=== PATIENT | male | born 1950 | race Caucasian/White ===

== ENCOUNTER 2020-09-14 14:04 | Inpatient (IN) | payer MEDICARE ==
[~2020-09-14] VITALS: Ht 170.2 cm; Wt 66.3 kg
[2020-09-14 18:30] VITALS: BP 152/77
[2020-09-14] MEDS ORDERED: PANTOPRAZOLE SODIUM 40 MG in D5W 50 ML IV SCH (19:00)
[2020-09-14 20:00] VITALS: BP_SYST 122; BP_SYST 142; BP_DIAS 78; BP_DIAS 83
--- NOTE | 2020-09-14 20:07 | REP ---
INDICATION: SOB. COMPARISON: None. TECHNIQUE: SINGLE PORTABLE AP VIEW OF THE CHEST WAS PERFORMED. FINDINGS: THERE IS NO ACUTE INFILTRATE OR PULMONARY EDEMA. LUNGS ARE CLEAR. HEART IS NOT SIGNIFICANTLY ENLARGED. MEDIASTINAL SILHOUETTE IS UNREMARKABLE. THE VISUALIZED OSSEOUS STRUCTURES ARE INTACT. IMPRESSION: NO ACUTE PULMONARY DISEASE. <Electronically signed by Marko Short > 09/14/202003
[2020-09-14 20:19] LABS: BASO % 0.6 % (0.0-1.0); EOS # 0.1 10^3/uL (0.0-0.5); EOS % 1.4 % (0.0-3.0); HEMATOCRIT 23.5 % (42.0-52.0); LYMPH # 1.1 10^3/uL (1.5-5.0); LYMPH % 21.4 % (24.0-44.0); MEAN CORPUSCULAR HEMOGLOBIN 23.3 pg (27.0-33.0); MEAN CORPUSCULAR HGB CONC 29.8 g/dl (32.0-36.5); MEAN CORPUSCULAR VOLUME 78.1 fl (80.0-96.0); MONO # 0.4 10^3/uL (0.0-0.8); MONO % 8.2 % (0.0-5.0); NEUTROPHILS # 3.3 10^3/uL (1.5-8.5); PLATELET COUNT, AUTOMATED 383 10^3/uL (150-450); RED BLOOD COUNT 3.01 10^6/uL (4.30-6.10); WHITE BLOOD COUNT 4.9 10^3/uL (4.0-10.0)
[2020-09-14 21:08] LABS: ALBUMIN 3.2 GM/DL (3.2-5.2); ALT/SGPT 19 U/L (12-78); BILIRUBIN,TOTAL 1.5 MG/DL (0.2-1.0); BLOOD UREA NITROGEN 13 MG/DL (7-18); CALCIUM LEVEL 8.6 MG/DL (8.8-10.2); CARBON DIOXIDE LEVEL 26 MEQ/L (21-32); CHLORIDE LEVEL 108 MEQ/L (98-107); CK-MB VALUE MASS 1.9 NG/ML (<3.6); CPK CREATINE PHOSPHOKINASE 114 U/L (39-308); CREATININE FOR GFR 0.71 MG/DL (0.70-1.30); FERRITIN < 3 NG/ML (26-388); GLOMERULAR FILTRATION RATE > 60.0 (>42); GLUCOSE, FASTING 97 MG/DL (70-100); IRON (FE) 62 UG/DL (65-175); MB/CK RELATIVE INDEX 1.67 (< OR =4); NT-PRO BNP 136 PG/ML (<125); PERCENT SATURATION 17.2 % (19.7-50.0); SODIUM LEVEL 139 MEQ/L (136-145); TOTAL IRON BINDING CAPACITY 361 UG/DL (250-450); TOTAL PROTEIN 6.1 GM/DL (6.4-8.2); TROPONIN I < 0.02 NG/ML (< 0.10)
--- NOTE | 2020-09-14 21:22 | HPEPDOC ---
[facility] Medical History & Physical Date of Admission Sep 14, 2020 Date of Service: Sep 14, 2020 Attending Physician: BARNEY BECKHAM MD History and Physical CHIEF COMPLAINT: Transfer from [facility], GI bleed HISTORY OF PRESENT ILLNESS: Wade Campoverde is a 70-year-old male with history of GERD, BPH, history of external hemorrhoids, frequent UTIs who presents as transfer from [facility] for acute blood loss anemia. 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 He has had to take frequent breaks and has been feeling lethargic and weak. He has a long history of external hemorrhoids that intermittently bleed. He has noticed his hemorrhoids bleeding in the last 3 weeks. He reached out to his primary care physician who sent him to the [facility]. Workup at [facility] was significant for hemoglobin at 6.2. The patient also reports some epigastric abdominal discomfort about one week ago. He attributed this to drinking acidic coffee, and the abdominal pain subsided when he stopped drinking coffee. He denies any black tarry stools or maroon-colored stools. He does report when his hemorrhoids are bleeding it appears as right red blood dripping in the toilet and he feels there has been a significant amount of blood in the past couple of weeks. He denies any chest pain, coughing, shortness of breath, lightheadedness or dizziness. He has never had an EGD or colonoscopy. He did recently have a UTI treated with ciprofloxacin. 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 REVIEW OF SYSTEMS: Constitutional: Reports fatigue, reports chills, denies weight loss, denies night sweats ENT/Mouth: No Hearing Changes, No Ear Pain, No Nasal Congestion, No Sinus Pain, No Hoarseness, No sore throat, No Rhinorrhea, No Swallowing Difficulty Eyes: No Eye Pain, No Swelling, No Redness, No Foreign Body, No Discharge, No Vision Changes Cardiovascular: No Chest Pain, No SOB, No PND, reports some Dyspnea on Exert ion, No Orthopnea, No Claudication, No Edema, No Palpitations Respiratory: No Cough, No Wheezing, No Dyspnea Gastrointestinal: Reports some intermittent epigastric abdominal pain, reports some bleeding hemorrhoids, denies black tarry stools or maroon-colored stools. Genitourinary: Recent dysuria attributed to UTI Musculoskeletal: No Arthralgias, No Myalgias, No Joint Swelling, No Joint Stiffness, No Back Pain, No Neck Pain Skin: No Skin Lesions, No Pruritis, No Hair Changes, No Breast/Skin Changes, No Nipple Discharge Neuro: No Weakness, No Numbness, No Paresthesias, No Loss of Consciousness, No Syncope, No Dizziness, No Headache, No Coordination Changes, No Recent Falls Psych: No Anxiety/Panic, No Depression, No Insomnia, No Personality Changes, No Delusions Heme/Lymph: No Bruising, No Bleeding, No Transfusions History, No Lymphadenopathy Endocrine: No Polyuria, No Polydipsia, No Temperature Intolerance HOME MEDICATIONS: Please see below. PHYSICAL EXAMINATION: VITAL SIGNS: see below GENERAL: Appears younger than stated age, alert and oriented, in no apparent distress, pleasant and conversant in full sentences. HEENT: PERRL, EOMI, Oral mucous membranes are moist without lesions. NECK: The patient has no noted JVD. No adenopathy is appreciated. No thyromegaly CHEST/LUNGS: Lungs are clear bilaterally without rhonchi, rales, or wheezes. There is no subcutaneous air appreciated. There is no tenderness to the chest wall. HEART: Regular rate and rhythm. No murmurs, rubs, or gallops are appreciated. Distal pulses are 2+. No carotid bruits appreciated. ABDOMEN: Soft, nontender, and nondistended. Bowel sounds are positive. No organomegaly is appreciated. No masses are appreciated. There are no peritoneal signs. There is no [place] sign. EXTREMITIES: No peripheral edema. There is no focal long bone tenderness or deformity. SKIN: The patients skin is warm and dry, without rashes or lesions. PSYCHIATRIC: AAO x 3, normal mood/affect NEUROLOGIC: No obvious focal deficits LABORATORY DATA: See below. IMAGING: CXR: FINDINGS: THERE IS NO ACUTE INFILTRATE OR PULMONARY EDEMA. LUNGS ARE CLEAR. HEART IS NOT SIGNIFICANTLY ENLARGED. MEDIASTINAL SILHOUETTE IS UNREMARKABLE. THE VISUALIZED OSSEOUS STRUCTURES ARE INTACT. IMPRESSION: NO ACUTE PULMONARY DISEASE. MICROBIOLOGY: Please see below. ASSESSMENT: This is a 70-year-old male with history of GERD, external hemorrhoids who presents as transfer from [facility] for acute blood loss anemia concerning for GI bleed versus bleeding hemorrhoids PLAN: 1. Acute blood loss anemia, symptomatic: concerning for GIB vs bleeding hemorrhoids -Per transfer notes, initial hemoglobin at [facility] was 6.8 and repeat was found to be 5.8. Unsure of how much blood transfused at [facility] -Hgb/Hct on arrival to [facility] found to be 7.0/23.5 -MCV 78.1. Pending iron studies -Reticulocyte noted to be low at 20.8. Abs reticulocyte count calculated at 0.8, indicating hypoproliferation -2 units packed red blood cells ordered for transfusion. Patient has been consented -Will trend H/H Q6H -Will order fecal occult -Protonix 40mg IV BID -GI consult in AM for possible scope 2. Frequent UTIs, recent dysuria: -Will order UA 3. GERD: -On Protonix 4. BPH: -Continue home Flomax DVT ppx: TEDs/SCDs DISPO: Transfuse pRBC, trend H/h Vital Signs Vital Signs Date Time Temp Pulse Resp B/P (MAP) Pulse Ox O2 Delivery O2 Flow Rate FiO2 09/14/20 18:30 97.2 61 18 152/77 (102) 100 Room Air Laboratory Data Labs 24H Laboratory Tests 2 09/14/20 19:33: Home Medications Scheduled Multivitamins (Thera M Plus Tablet) 1 Each Tablet, 1 TAB PO DAILY Tamsulosin HCl (Flomax) 0.4 Mg Capsule, 0.4 MG PO QPM AFTER DINNER Scheduled PRN Triamcinolone Acet (Triamcinolone Acetonide 0.1% Oint) 15 Gm Oint...g., 1 DOSE TOP BID PRN for ECZEMA APPLIES TO BACK NEEDED Allergies Coded Allergies: No Known Allergies (Verified Allergy, Unknown, 09/14/20) A-FIB/CHADSVASC A-FIB History Current/History of A-Fib/PAF?: No Current PO Anticoag Therapy: No GME ATTESTATION GME ATTESTATION My faculty preceptor for this patient encounter was physically present during the encounter and was fully available. All aspects of the patient interview, examination, medical decision making process, and medical care plan development were reviewed and approved by the faculty preceptor. The faculty preceptor is aware and concurs with the plan as stated in the body of this note and will attest to such by his/her cosignature. ATTENDING NOTE TIME OF SERVICE 940PM Mr. Santos a 70 yr old w a hx of hemorrhoids and BPH who presented w c/o fat igue and was found to have acute anemia. - start venofer & f/u w GI rest per 's H&P ALISIA CARPENTER MD Sep 14, 2020 19:44 BARNEY BECKHAM MD Sep 14, 2020 23:06
[2020-09-14] MEDS ORDERED: TRIA1OI TOP (21:28)
[2020-09-14] MEDS ORDERED: FLOM0.4C39 PO (21:28)
[2020-09-14] MEDS ORDERED: VITMTA PO (21:28)
[2020-09-14 21:43] LABS: BILIRUBIN,DIRECT 0.3 MG/DL (0.0-0.2); LIPASE 101 U/L (73-393)
[2020-09-14 21:54] VITALS: BP 124/74
[2020-09-14 22:09] VITALS: BP 130/80
[2020-09-14 22:54] VITALS: BP 122/76
[2020-09-14] MEDS ORDERED: IRON SUCROSE 100MG 5ML VIAL (J1756 PER 1MG) IV SCH (23:00)
[2020-09-14] MEDS: PANTOPRAZOLE 40MG VIAL (C9113 PER 1) IV SCH (23:08)
[2020-09-15] VITALS (9 sets, daily range): BP systolic 105–137; BP diastolic 63–78
[2020-09-15] MEDS: TAMSULOSIN 0.4 MG CAP PO SCH ×2 (00:31→21:56)
[2020-09-15 04:04] LABS: BASO % 0.4 % (0.0-1.0); EOS # 0.2 10^3/uL (0.0-0.5); EOS % 3.7 % (0.0-3.0); HEMATOCRIT 26.8 % (42.0-52.0); HEMOGLOBIN 8.3 g/dl (13.5-17.5); LYMPH # 1.4 10^3/uL (1.5-5.0); LYMPH % 29.3 % (24.0-44.0); MEAN CORPUSCULAR HEMOGLOBIN 24.3 pg (27.0-33.0); MEAN CORPUSCULAR VOLUME 78.6 fl (80.0-96.0); MONO # 0.5 10^3/uL (0.0-0.8); MONO % 10.7 % (0.0-5.0); NEUTROPHILS # 2.7 10^3/uL (1.5-8.5); NEUTROPHILS % 55.7 % (36.0-66.0); PLATELET COUNT, AUTOMATED 334 10^3/uL (150-450); RED BLOOD COUNT 3.41 10^6/uL (4.30-6.10); WHITE BLOOD COUNT 4.8 10^3/uL (4.0-10.0)
[2020-09-15 04:25] LABS: BLOOD UREA NITROGEN 12 MG/DL (7-18); CALCIUM LEVEL 8.3 MG/DL (8.8-10.2); CARBON DIOXIDE LEVEL 28 MEQ/L (21-32); CHLORIDE LEVEL 106 MEQ/L (98-107); CREATININE FOR GFR 0.81 MG/DL (0.70-1.30); GLOMERULAR FILTRATION RATE > 60.0 (>42); GLUCOSE, FASTING 89 MG/DL (70-100); POTASSIUM SERUM 3.9 MEQ/L (3.5-5.1); SODIUM LEVEL 141 MEQ/L (136-145)
--- NOTE | 2020-09-15 08:38 | ECGEPIP ---
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
[2020-09-15] MEDS: PANTOPRAZOLE 40MG VIAL (C9113 PER 1) IV SCH ×2 (09:16→21:56)
[2020-09-15] MEDS: IRON SUCROSE 100 MG in NS 100 ML IV SCH (11:35)
[2020-09-15 12:54] LABS: HEMATOCRIT 29.4 % (42.0-52.0); HEMOGLOBIN 9.1 g/dl (13.5-17.5)
--- NOTE | 2020-09-15 14:19 | IPNPDOC ---
Text Note Date of Service The patient was seen on 09/15/20. NOTE Subjective: -No complaints this morning. -Had non bloody brown BM Objective: GENERAL: Alert and oriented, in no apparent distress, pleasant and conversant in full sentences. HEENT: PERRL, EOMI, Oral mucous membranes are moist without lesions. NECK: The patient has no noted JVD. No adenopathy is appreciated. No thyromegaly CHEST/LUNGS: Lungs are clear bilaterally without rhonchi, rales, or wheezes. There is no subcutaneous air appreciated. There is no tenderness to the chest wall. HEART: Regular rate and rhythm. No murmurs, rubs, or gallops are appreciated. Distal pulses are 2+. No carotid bruits appreciated. ABDOMEN: Soft, nontender, and nondistended. Bowel sounds are positive. No organomegaly is appreciated. No masses are appreciated. EXTREMITIES: No peripheral edema. There is no focal long bone tenderness or deformity. SKIN: The patients skin is warm and dry, without rashes or lesions. PSYCHIATRIC: AAO x 3, normal mood/affect NEUROLOGIC: No obvious focal deficits LABORATORY DATA: Hgb 9.1 Hct 29.4 WBC 4.8 Cr 0.81 Fe 62 ferritin <3 IMAGING: CXR: FINDINGS: THERE IS NO ACUTE INFILTRATE OR PULMONARY EDEMA. LUNGS ARE CLEAR. HEART IS NOT SIGNIFICANTLY ENLARGED. MEDIASTINAL SILHOUETTE IS UNREMARKABLE. THE VISUALIZED OSSEOUS STRUCTURES ARE INTACT. IMPRESSION: NO ACUTE PULMONARY DISEASE. MICROBIOLOGY: Please see below. ASSESSMENT: This is a 70-year-old male with history of GERD, external hemorrhoids who presents as transfer from [facility] for acute blood loss anemia concerning for GI bleed versus bleeding hemorrhoids PLAN: 1. Acute blood loss anemia, symptomatic: concerning for GIB -Per transfer notes, initial hemoglobin at [facility] was 6.8 and repeat was found to be 5.8. Unsure of how much blood transfused at [facility] -Hgb/Hct on arrival to [facility] found to be 7.0/23.5 -MCV 78.1. -Reticulocyte noted to be low at 20.8. Abs reticulocyte count calculated at 0.8, indicating hypoproliferation, however i/s/o of no iron stores with a ferritin <3 -s/p 2 units packed red blood cells with good sustained response -Daily H/H -Protonix 40mg IV BID -GI consult for possible scope, has never had a colonoscopy -getting IV iron, and will discharge him on PO iron -f/u B12 and folate 2. Frequent UTIs, recent dysuria: -negative UA, f/u UCx 3. GERD: -On Protonix 4. BPH: -Continue home Flomax DVT ppx: TEDs/SCDs DISPO:pending GI eval VS,Fishbone, I+O VS, Fishbone, I+O Laboratory Tests 09/14/20 20:09 09/15/20 03:55 09/15/20 12:43 Vital Signs Date Time Temp Pulse Resp B/P (MAP) Pulse Ox O2 Delivery O2 Flow Rate FiO2 09/15/20 12:36 98.2 63 18 105/63 (77) 97 Room Air I&O- Last 24 Hours up to 6 AM 09/15/20 06:00 Intake Total 800 ml Output Total 125 ml Balance 675 ml MARCOS DONG MD Sep 15, 2020 14:19
[2020-09-15] MEDS ORDERED: GOLYTELY SOLN 4000 ML BTL PO ONE (23:30)
[2020-09-16 05:56] LABS: EOS # 0.2 10^3/uL (0.0-0.5); HEMATOCRIT 27.9 % (42.0-52.0); HEMOGLOBIN 8.6 g/dl (13.5-17.5); LYMPH # 1.4 10^3/uL (1.5-5.0); LYMPH % 32.8 % (24.0-44.0); MEAN CORPUSCULAR HEMOGLOBIN 24.2 pg (27.0-33.0); MEAN CORPUSCULAR HGB CONC 30.8 g/dl (32.0-36.5); MEAN CORPUSCULAR VOLUME 78.4 fl (80.0-96.0); MONO # 0.4 10^3/uL (0.0-0.8); MONO % 9.3 % (0.0-5.0); NEUTROPHILS # 2.2 10^3/uL (1.5-8.5); NEUTROPHILS % 52.4 % (36.0-66.0); PLATELET COUNT, AUTOMATED 321 10^3/uL (150-450); RED BLOOD COUNT 3.56 10^6/uL (4.30-6.10); WHITE BLOOD COUNT 4.2 10^3/uL (4.0-10.0)
[2020-09-16 06:00] VITALS: BP 138/76
[2020-09-16 06:16] LABS: BLOOD UREA NITROGEN 9 MG/DL (7-18); CALCIUM LEVEL 8.5 MG/DL (8.8-10.2); CARBON DIOXIDE LEVEL 27 MEQ/L (21-32); CHLORIDE LEVEL 105 MEQ/L (98-107); CREATININE FOR GFR 0.88 MG/DL (0.70-1.30); GLOMERULAR FILTRATION RATE > 60.0 (>42); GLUCOSE, FASTING 86 MG/DL (70-100); POTASSIUM SERUM 3.9 MEQ/L (3.5-5.1); SODIUM LEVEL 140 MEQ/L (136-145)
[2020-09-16] MEDS: PANTOPRAZOLE 40MG VIAL (C9113 PER 1) IV SCH ×2 (08:35→22:18)
[2020-09-16] MEDS: IRON SUCROSE 100 MG in NS 100 ML IV SCH (09:53)
[2020-09-16 13:19] VITALS: BP 122/75
--- NOTE | 2020-09-16 13:50 | CR.PDOC ---
General Date of Consultation: Sep 16, 2020 Referring Provider: MARCOS VIRAMONTES MD Attending Physician: PATY BATES MD Consultation Referring physician / PCP : Dr. Viramontes Reason for consult: symptomatic Anemia and intermittent rectal bleeding. HPI: 70-year-old male with history of chronic acid reflux, BPH, history of external hemorrhoids, frequent UTIs who was transferred from [facility] for acute blood loss anemia. Patient was noted to have severe anemia with hemoglobin of 6.2 and Gi was consulted for the same. 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 He reports long history of external hemorrhoids that intermittently bleed. Patient also reported some epigastric abdominal pain at the time of admission but currently denies any abdominal pain, nausea, vomiting, diarrhea, loss of appetite, early satiety or unintentional weight loss, hematemesis, melena. Patient reports regular bowel movements. Review of Systems: GI: as stated above CVS: No chest pain, No palpitations, No leg swelling RS: No Shortness of breath, No Wheezing DRAWER UPFITTER: No loss of consciousness, No focal motor weakness., Hematology: No easy bruising, No gum bleeding, Musculoskeletal: No joint pain, ambulating well. : No blood inurine, No burning sensation of the urine ENT: No ear discharge/ pain, No dysphagia. Eyes: No photophobia. Skin: No rash Home medications: reviewed. No Plavix and No anticoagulants Medical h/o: As above. Surgical h/o: None on abdomen. Social h/o: Denies Alcohol, smoking, IVDA/ drugs. Family h/o of GI cancers - None Prior Endoscopies: None in [facility]. No prior Screening Colonoscopy as per patient. Prior GI evaluation: None in [facility] Exam: Vitals: reviewed General: Alert and oriented x 3, not in acute distress HEENT: No pallor, no icterus. Normal oropharynx, NO cervical lymphadenopathy. Chest: symmetric with bilateral air entry, CVS: S1, S2 heard, Abdomen: non-distended, soft, non-tender, no rigidity or guarding, no palpable masses, normal bowel sounds heard. Rectal exam: Patient refused / Deferred at this time in view of scheduled colonoscopy. Extremities: pulses palpable, no pedal edema, DRAWER UPFITTER: no focal motor or sensory deficits. Moves all extremities Skin: no rash. Labs: reviewed. Imaging: none / reviewed. Impression: -- Symptomatic anemia likely from GI blood loss with intermittent rectal bleeding Needs further evaluation DDxAVM bleeding vs colon polyps vs hemorrhoids/ diverticulosis vs upper GI bleeding. Recommendations: -- Patient educated about the prior test results and all questions answered. -- Monitor hemoglobin/ hematocrit Transfuse as needed to keep hemoglobin around/ above 8. -- bowel prep for colonoscopy as ordered. -- NPO for procedure 2-3 hours prior to procedure. -- PPI for now -- Will schedule for EGD and Colonoscopy after bowel prep. Patient educated about the procedures, indications, risks (including but not limited to bleeding, infection, perforation, anesthesia risks, including ), benefits and all alternatives including conservative measures without intervention. Patient verbalized understanding and consented for the procedures. -- Please follow operative note for post procedure recommendations. -- Plan of care educated to patient and patient verbalized understanding and agreed. All questions answered. -- Recommendations communicated to primary team. Patient to follow with PCP upon discharge for routine medical care. Vital Signs/I&O Vital Signs Date Time Temp Pulse Resp B/P (MAP) Pulse Ox O2 Delivery O2 Flow Rate FiO2 09/16/20 13:19 97.7 57 14 122/75 (91) 98 Room Air I&O- Last 24 Hours up to 6 AM 09/16/20 06:00 Intake Total 850 ml Output Total 0 ml Balance 850 ml Laboratory Data Labs 24H Laboratory Tests 2 09/16/20 05:17: Immature Granulocyte % (Auto) 0.5, Neutrophils (%) (Auto) 52.4, Lymphocytes (%) (Auto) 32.8, Monocytes (%) (Auto) 9.3H, Eosinophils (%) (Auto) 4.0H, Basophils (%) (Auto) 1.0, Neutrophils # (Auto) 2.2, Lymphocytes # (Auto) 1.4L, Monocytes # (Auto) 0.4, Eosinophils # (Auto) 0.2, Basophils # (Auto) 0.0, Nucleated Red Blood Cells % (auto) 0.0, Anion Gap 8, Glomerular Filtration Rate > 60.0, Calcium Level 8.5L CBC/BMP Laboratory Tests 09/16/20 05:17 Microbiology Microbiology 09/14/20 Urine Culture - Final, Complete Allergies Coded Allergies: No Known Allergies (Verified Allergy, Unknown, 09/14/20) Home Medications Scheduled Multivitamins (Thera M Plus Tablet) 1 Each Tablet, 1 TAB PO DAILY, (Reported) Tamsulosin HCl (Flomax) 0.4 Mg Capsule, 0.4 MG PO QPM, (Reported) AFTER DINNER Scheduled PRN Triamcinolone Acet (Triamcinolone Acetonide 0.1% Oint) 15 Gm Oint...g., 1 DOSE TOP BID PRN for ECZEMA, (Reported) APPLIES TO BACK NEEDED PATY BATES MD Sep 16, 2020 13:50
--- NOTE | 2020-09-16 14:15 | IPNPDOC ---
Text Note Date of Service The patient was seen on 09/16/20. NOTE Subjective: -No complaints this morning. - Had go-lytely prep overnight for EGD/colo today, no complications, doing well Objective: GENERAL: Alert and oriented, in no apparent distress, pleasant and conversant in full sentences. HEENT: PERRL, EOMI, Oral mucous membranes are moist without lesions. NECK: The patient has no noted JVD. No adenopathy is appreciated. No thyromegaly CHEST/LUNGS: Lungs are clear bilaterally without rhonchi, rales, or wheezes. There is no subcutaneous air appreciated. There is no tenderness to the chest wall. HEART: Regular rate and rhythm. No murmurs, rubs, or gallops are appreciated. Distal pulses are 2+. No carotid bruits appreciated. ABDOMEN: Soft, nontender, and nondistended. Bowel sounds are positive. No organomegaly is appreciated. No masses are appreciated. EXTREMITIES: No peripheral edema. There is no focal long bone tenderness or deformity. SKIN: The patients skin is warm and dry, without rashes or lesions. PSYCHIATRIC: AAO x 3, normal mood/affect NEUROLOGIC: No obvious focal deficits LABORATORY DATA: stable IMAGING: CXR: FINDINGS: THERE IS NO ACUTE INFILTRATE OR PULMONARY EDEMA. LUNGS ARE CLEAR. HEART IS NOT SIGNIFICANTLY ENLARGED. MEDIASTINAL SILHOUETTE IS UNREMARKABLE. THE VISUALIZED OSSEOUS STRUCTURES ARE INTACT. IMPRESSION: NO ACUTE PULMONARY DISEASE. MICROBIOLOGY: Please see below. ASSESSMENT: This is a 70-year-old M with history of GERD, external hemorrhoids who presents as transfer from [facility] for acute blood loss anemia for GI evaluation. PLAN: 1. Acute blood loss anemia, symptomatic: 2/2 GIB -Per transfer notes, initial hemoglobin at [facility] was 6.8 and repeat was found to be 5.8. Unsure of how much blood transfused at [facility] -Hgb/Hct on arrival to [facility] found to be 7.0/23.5 -MCV 78.1. -Reticulocyte noted to be low at 20.8. Abs reticulocyte count calculated at 0.8, indicating hypoproliferation, however i/s/o of no iron stores with a ferritin <3 -s/p 2 units packed red blood cells with good sustained response -Daily H/H -Protonix 40mg IV BID -GI consulted has EGD/colo today -getting IV iron, and will discharge him on PO iron -f/u B12 and folate 2. Frequent UTIs, recent dysuria: -negative UA, f/u UCx 3. GERD: -On Protonix 4. BPH: -Continue home Flomax DVT ppx: TEDs/SCDs DISPO: has EGD/[facility] today VS,Fishbone, I+O VS, Fishbone, I+O Laboratory Tests 09/16/20 05:17 Vital Signs Date Time Temp Pulse Resp B/P (MAP) Pulse Ox O2 Delivery O2 Flow Rate FiO2 09/16/20 13:19 97.7 57 14 122/75 (91) 98 Room Air I&O- Last 24 Hours up to 6 AM 09/16/20 05:59 Intake Total 550 ml Output Total 0 ml Balance 550 ml MARCOS DONG MD Sep 16, 2020 14:15
[2020-09-16] MEDS ORDERED: propofoL 200 MG/20 ML VIAL As Ordered ONE (14:44)
[2020-09-16] MEDS ORDERED: LIDOCAINE 2% 100MG/5ML SDV (FOR ANES.) As Ordered ONE (14:44)
--- NOTE | 2020-09-16 15:40 | ROOR ---
Patient Name: Wade Campoverde Procedure Date: 09/16/2020 2:39 PM Date of : 1950 Age: 70 Room: [facility] Gender: Male Note Status: Finalized Procedure: Upper GI endoscopy Indications: Acute post hemorrhagic anemia, Iron deficiency anemia Providers: Florin Mejía MD Referring MD: 2. Inpatient 2. Inpatient, Zoë Fowler Md Requesting Provider: Medicines: Monitored Anesthesia Care Complications: No immediate complications. Procedure: Pre-Anesthesia Assessment: - Prior to the procedure, a History and Physical was performed, and patient medications and allergies were reviewed. The patient is competent. The risks and benefits of the procedure and the sedation options and risks were discussed with the patient. All questions were answered and informed consent was obtained. Patient identification and proposed procedure were verified by the physician, the nurse and the anesthesiologist in the procedure room. Mental Status Examination: alert and oriented. Airway Examination: normal oropharyngeal airway and neck mobility. Respiratory Examination: clear to auscultation. CV Examination: normal. Prophylactic Antibiotics: The patient does not require prophylactic antibiotics. Prior Anticoagulants: The patient has taken no previous anticoagulant or antiplatelet agents. ASA Grade Assessment: II - A patient with mild systemic disease. After reviewing the risks and benefits, the patient was deemed in satisfactory condition to undergo the procedure. The anesthesia plan was to use monitored anesthesia care (MAC). Immediately prior to administration of medications, the patient was re-assessed for adequacy to receive sedatives. The heart rate, respiratory rate, oxygen saturations, blood pressure, adequacy of pulmonary ventilation, and response to care were monitored throughout the procedure. The physical status of the patient was re-assessed after the procedure. The Endoscope was introduced through the mouth, and advanced to the second part of duodenum. The upper GI endoscopy was accomplished without difficulty. The patient tolerated the procedure well. Findings: The examined esophagus was normal. A large hiatal hernia was present. No gross lesions were noted in the entire examined stomach. There was a medium-sized lipoma, 15 mm in diameter, in the second portion of the duodenum. The exam was otherwise without abnormality. Impression: - Normal esophagus. - Large hiatal hernia. - No gross lesions in the stomach. - Duodenal lipoma. - The examination was otherwise normal. - No specimens collected. Recommendation: - Patient has a contact number available for emergencies. The signs and symptoms of potential delayed complications were discussed with the patient. Return to normal activities tomorrow. Written discharge instructions were provided to the patient. - Advance diet as tolerated. - High fiber diet. - Continue present medications. - Follow the recommendations as per the other procedure note. - Return to primary care physician. Procedure Code(s): --- Professional --- 49744, Esophagogastroduodenoscopy, flexible, transoral; diagnostic, including collection of specimen(s) by brushing or washing, when performed (separate procedure) Diagnosis Code(s): --- Professional --- K44.9, Diaphragmatic hernia without obstruction or gangrene D17.5, Benign lipomatous neoplasm of intra-abdominal organs D62, Acute posthemorrhagic anemia D50.9, Iron deficiency anemia, unspecified CPT copyright 2019 [employer]. All rights reserved. The codes documented in this report are preliminary and upon agile developer review may be revised to meet current compliance requirements. Florin Mejía MD Florin Mejía MD 09/16/2020 3:39:55 PM Electronically signed by Florin Mejía MD Number of Addenda: 0 Note Initiated On: 09/16/2020 2:39 PM Estimated Blood Loss: Estimated blood loss was minimal.
--- NOTE | 2020-09-16 15:58 | ROOR ---
Patient Name: Wade Campoverde Procedure Date: 09/16/2020 2:41 PM Date of : 1950 Age: 70 Room: [facility] Gender: Male Note Status: Finalized Procedure: Colonoscopy Indications: Hematochezia, Acute post hemorrhagic anemia Providers: Florin Mejía MD Referring MD: 2. Inpatient 2. Inpatient, Zoë Fowler Md Requesting Provider: Medicines: Monitored Anesthesia Care Complications: No immediate complications. Procedure: Pre-Anesthesia Assessment: - Prior to the procedure, a History and Physical was performed, and patient medications and allergies were reviewed. The patient is competent. The risks and benefits of the procedure and the sedation options and risks were discussed with the patient. All questions were answered and informed consent was obtained. Patient identification and proposed procedure were verified by the physician, the nurse and the anesthesiologist in the procedure room. Mental Status Examination: alert and oriented. Airway Examination: normal oropharyngeal airway and neck mobility. Respiratory Examination: clear to auscultation. CV Examination: normal. Prophylactic Antibiotics: The patient does not require prophylactic antibiotics. Prior Anticoagulants: The patient has taken no previous anticoagulant or antiplatelet agents. ASA Grade Assessment: III - A patient with severe systemic disease. After reviewing the risks and benefits, the patient was deemed in satisfactory condition to undergo the procedure. The anesthesia plan was to use monitored anesthesia care (MAC). Immediately prior to administration of medications, the patient was re-assessed for adequacy to receive sedatives. The heart rate, respiratory rate, oxygen saturations, blood pressure, adequacy of pulmonary ventilation, and response to care were monitored throughout the procedure. The physical status of the patient was re-assessed after the procedure. The Colonoscope was introduced through the anus and advanced to the cecum, identified by appendiceal orifice and ileocecal valve. The colonoscopy was performed without difficulty. The patient tolerated the procedure well. The quality of the bowel preparation was fair. The ileocecal valve, appendiceal orifice, and rectum were photographed. Scope insertion time was 5 minutes. Scope withdrawal time was 15 minutes. The total duration of the procedure was 20 minutes. Findings: The perianal exam findings include thrombosed external hemorrhoids, thrombosed internal hemorrhoids and internal hemorrhoids that do not return to the anal canal, thus continuously prolapsed (Grade IV). Two sessile polyps were found in the ascending colon and cecum. The polyps were 3 to 4 mm in size. These polyps were removed with a jumbo cold forceps. Resection and retrieval were complete. Verification of patient identification for the specimen was done by the physician and nurse using the patient's name, date and medical record number. Estimated blood loss was minimal. A 15 mm polyp was found in the distal descending colon. The polyp was sessile and suspicious for cancer. This was biopsied with a cold forceps for histology. To stop active bleeding, two hemostatic clips were successfully placed. There was no bleeding at the end of the procedure. Area of descending colon proximal to this polyp was tattooed with an injection of Spot (carbon black). A frond-like/villous, infiltrative and ulcerated non-obstructing large mass was found in the recto-sigmoid colon and at 15 cm proximal to the anus. The mass was partially circumferential (involving one-half of the lumen circumference). The mass measured five cm in length. In addition, its diameter measured thirty mm. This was biopsied with a cold forceps for histology. External and internal hemorrhoids were found during retroflexion and during perianal exam. The hemorrhoids were Grade IV (internal hemorrhoids that prolapse and cannot be reduced manually). Impression: - Preparation of the colon was fair. - Thrombosed external hemorrhoids, thrombosed internal hemorrhoids and internal hemorrhoids that do not return to the anal canal, thus continuously prolapsed (Grade IV) found on perianal exam. - Two 3 to 4 mm polyps in the ascending colon and in the cecum, removed with a jumbo cold forceps. Resected and retrieved. - One 15 mm polyp ( suspicious for cancerous polyp) in the distal descending colon. Biopsied. Clips were placed. Area of descending colon proximal to this polyp was tattooed . - Likely malignant tumor in the recto-sigmoid colon and at 15 cm proximal to the anus. Biopsied. - External and internal hemorrhoids. Recommendation: - Patient has a contact number available for emergencies. The signs and symptoms of potential delayed complications were discussed with the patient. Return to normal activities tomorrow. Written discharge instructions were provided to the patient. - High fiber diet. - Continue present medications. - Await pathology results. - Perform a CT scan (computed tomography) of chest with contrast, abdomen with contrast and pelvis with contrast at the next available appointment. - Check CEA. - Refer to a colo-rectal surgeon at appointment to be scheduled. - Refer to an oncologist at appointment to be scheduled. - Return to primary care physician. Procedure Code(s): --- Professional --- 72424, 59, Colonoscopy, flexible; with control of bleeding, any method 43335, Colonoscopy, flexible; with biopsy, single or multiple 53312, 59, Colonoscopy, flexible; with directed submucosal injection(s), any substance Diagnosis Code(s): --- Professional --- K64.3, Fourth degree hemorrhoids K64.5, Perianal venous thrombosis K63.5, Polyp of colon D49.0, Neoplasm of unspecified behavior of digestive system K92.1, Melena (includes Hematochezia) D62, Acute posthemorrhagic anemia CPT copyright 2019 [employer]. All rights reserved. The codes documented in this report are preliminary and upon greeting card maker review may be revised to meet current compliance requirements. Florin Mejía MD Florin Mejía MD 09/16/2020 3:58:16 PM Electronically signed by Florin Mejía MD Number of Addenda: 0 Note Initiated On: 09/16/2020 2:41 PM Estimated Blood Loss: Estimated blood loss was minimal.
[2020-09-16 16:26] VITALS: BP 122/76
[2020-09-16] MEDS: GASTROGRAFIN SOLUTION 30ML PO SCH ×2 (16:51→17:34)
[2020-09-16] MEDS ORDERED: ISOVUE-370 76% 100ML VIAL As Ordered ONE (18:22)
--- NOTE | 2020-09-16 19:02 | REPVR ---
PROCEDURE INFORMATION: Exam: CT Abdomen And Pelvis With Contrast Exam date and time: 09/16/2020 6:30 PM Age: 70 years old Clinical indication: Condition or disease; Cancer; Intestine, large; Additional info: New rectosigmoid mass, for staging TECHNIQUE: Imaging protocol: Computed tomography of the abdomen and pelvis with intravenous contrast. Radiation optimization: All CT scans at this facility use at least one of these dose optimization techniques: automated exposure control; mA and/or kV adjustment per patient size (includes targeted exams where dose is matched to clinical indication); or iterative reconstruction. Contrast material: ISOVUE 370; Contrast volume: 100 ml; Contrast route: INTRAVENOUS (IV); COMPARISON: No relevant prior studies available. FINDINGS: Lungs: Stellate parenchymal opacity left lower lobe may represent scarring/atelectasis. Calcified granulomas left lower lobe. Mediastinal space: A small to moderate hiatal hernia is present. Prominent soft tissue density demonstrated within the hernia and bulging into the gastric cardia. Clinical correlation to exclude neoplasm suggested. Liver: There are cysts in the liver measuring up to 2.7 cm located in the medial right lobe. No complex features demonstrated. No follow-up suggested. Liver otherwise unremarkable. Gallbladder and bile ducts: There are gallstones present. Minimal pericholecystic fluid. Clinical correlation to exclude cholecystitis suggested. Pancreas: Normal. No ductal dilation. Spleen: Normal. No splenomegaly. Adrenal glands: Normal. No mass. Kidneys and ureters: Simple cyst right kidney measures 6.9 x 5.1 cm. No follow-up suggested. Kidneys otherwise unremarkable. Stomach and bowel: Marked thickening of the wall of the rectum measuring up to 1.8 cm. Enhancement demonstrated within the rectal wall as well. Findings consistent with neoplasm. Dilatation of the right transverse and proximal left colon with increased fluid on the right. Maximum: Dimension measures up to 4.8 cm. Appendix: No evidence of appendicitis. Intraperitoneal space: Unremarkable. No free air. No significant fluid collection. Vasculature: The aortoiliac vessels demonstrate mild atherosclerotic calcification. Lymph nodes: Multiple subcentimeter lymph nodes demonstrated in the mesorectum. Urinary bladder: See "Reproductive" finding. Reproductive: The prostate gland demonstrates marked hyperplasia. Median lobe hypertrophy bulges into and elevates the bladder base. Bones/joints: Unremarkable. No acute fracture. Soft tissues: Status post bilateral inguinal herniorrhaphy's. Possible varicocele on the left. IMPRESSION: 1. There are cysts in the liver measuring up to 2.7 cm located in the medial right lobe. No complex features demonstrated. No follow-up suggested. Liver otherwise unremarkable. 2. There are gallstones present. Minimal pericholecystic fluid. Clinical correlation to exclude cholecystitis suggested. 3. A small to moderate hiatal hernia is present. Prominent soft tissue density demonstrated within the hernia and bulging into the gastric cardia. Clinical correlation to exclude neoplasm suggested. 4. Simple cyst right kidney measures 6.9 x 5.1 cm. No follow-up suggested. 5. The prostate gland demonstrates marked hyperplasia. Median lobe hypertrophy bulges into and elevates the bladder base. Marked prostatic hyperplasia. 6. Marked thickening of the wall of the rectum measuring up to 1.8 cm. Enhancement demonstrated within the rectal wall as well. Findings consistent with neoplasm. COMMENTS: Consistent with the [employer]'s Incidental Findings Committee white paper (J Am Yi Radiol 2018): Any incidental renal lesion less than 1 cm or classified as too small to characterize, or any incidental cystic renal lesion characterized as simple-appearing, is likely benign. No follow-up imaging is recommended for these lesions per consensus recommendations based on imaging criteria. Electronically signed by: Santi Sanderson On 09/16/2020 19:02:16 PM
--- NOTE | 2020-09-16 19:09 | REPVR ---
PROCEDURE INFORMATION: Exam: CT Chest With Contrast; Diagnostic Exam date and time: 09/16/2020 6:30 PM Age: 70 years old Clinical indication: Condition or disease; Other: New rectosigmoid mass, for staging TECHNIQUE: Imaging protocol: Diagnostic computed tomography of the chest with intravenous contrast. Radiation optimization: All CT scans at this facility use at least one of these dose optimization techniques: automated exposure control; mA and/or kV adjustment per patient size (includes targeted exams where dose is matched to clinical indication); or iterative reconstruction. Contrast material: ISOVUE 370; Contrast volume: 100 ml; Contrast route: INTRAVENOUS (IV); COMPARISON: [facility] PORTABLE CHEST X-RAY 09/14/2020 7:39 PM FINDINGS: Lungs: Small calcified granuloma right upper and left lower lobes. Bibasilar atelectasis/scarring. Noncalcified nodules left lower lobe measure up to 5.5 mm. Findings may be postinflammatory although more aggressive pathology not excluded. Patchy parenchymal infiltrates in the left upper and lower lobes may represent atelectasis/scarring although an infectious etiology not excluded. Pleural space: Unremarkable. No pneumothorax. No pleural effusion. Heart: Unremarkable. No cardiomegaly. No pericardial effusion. Mediastinal space: Moderate hiatal hernia with thickened todd demonstrated within the hiatal hernia protruding into the stomach as described on the accompanying abdominal CT report. Aorta: There is fusiform dilatation of the ascending thoracic aorta which measures 4.5 cm. maximally. There is no dissection or saccular component. Lymph nodes: Unremarkable. No enlarged lymph nodes. Bones/joints: Unremarkable. No acute fracture. Soft tissues: Unremarkable. IMPRESSION: 1. Noncalcified nodules left lower lobe measure up to 5.5 mm. Findings may be postinflammatory although more aggressive pathology not excluded. Fleischner Society follow up recommendations for incidental nodules are not indicated. Follow up per the patient's medical condition. 2. Patchy parenchymal infiltrates in the left upper and lower lobes may represent atelectasis/scarring although an infectious etiology not excluded. 3. There is fusiform dilatation of the ascending thoracic aorta which measures 4.5 cm. maximally. There is no dissection or saccular component. Electronically signed by: Santi Sanderson On 09/16/2020 19:08:42 PM
[2020-09-16 22:00] VITALS: BP 112/78
[2020-09-16] MEDS: TAMSULOSIN 0.4 MG CAP PO SCH (22:18)
[2020-09-17 06:00] VITALS: BP 104/71
[2020-09-17 06:51] LABS: BASO % 0.3 % (0.0-1.0); EOS # 0.1 10^3/uL (0.0-0.5); EOS % 1.2 % (0.0-3.0); HEMATOCRIT 26.6 % (42.0-52.0); HEMOGLOBIN 8.2 g/dl (13.5-17.5); LYMPH # 1.4 10^3/uL (1.5-5.0); LYMPH % 14.6 % (24.0-44.0); MEAN CORPUSCULAR HEMOGLOBIN 24.8 pg (27.0-33.0); MEAN CORPUSCULAR HGB CONC 30.8 g/dl (32.0-36.5); MEAN CORPUSCULAR VOLUME 80.4 fl (80.0-96.0); MONO # 0.5 10^3/uL (0.0-0.8); MONO % 5.1 % (0.0-5.0); NEUTROPHILS # 7.5 10^3/uL (1.5-8.5); NEUTROPHILS % 78.5 % (36.0-66.0); PLATELET COUNT, AUTOMATED 321 10^3/uL (150-450); RED BLOOD COUNT 3.31 10^6/uL (4.30-6.10); WHITE BLOOD COUNT 9.5 10^3/uL (4.0-10.0)
[2020-09-17 07:07] LABS: BLOOD UREA NITROGEN 8 MG/DL (7-18); CALCIUM LEVEL 8.4 MG/DL (8.8-10.2); CARBON DIOXIDE LEVEL 27 MEQ/L (21-32); CHLORIDE LEVEL 105 MEQ/L (98-107); GLOMERULAR FILTRATION RATE > 60.0 (>42); GLUCOSE, FASTING 81 MG/DL (70-100); POTASSIUM SERUM 3.7 MEQ/L (3.5-5.1); SODIUM LEVEL 140 MEQ/L (136-145)
[2020-09-17] MEDS: PANTOPRAZOLE 40MG TAB (PROTONIX) PO SCH (08:48)
[2020-09-17] MEDS: IRON SUCROSE 100 MG in NS 100 ML IV SCH (08:48)
--- NOTE | 2020-09-17 11:54 | IPNPDOC ---
Text Note Date of Service The patient was seen on 09/17/20. NOTE Subjective: -No complaints this morning. -Had EGD/colo that noted rectosigmoid mass, onc consulted to see him this morning, had staging CT C/A/P Objective: GENERAL: Alert and oriented, in no apparent distress, pleasant and conversant in full sentences. HEENT: PERRL, EOMI, Oral mucous membranes are moist without lesions. NECK: The patient has no noted JVD. No adenopathy is appreciated. No thyromegaly CHEST/LUNGS: Lungs are clear bilaterally without rhonchi, rales, or wheezes. There is no subcutaneous air appreciated. There is no tenderness to the chest wall. HEART: Regular rate and rhythm. No murmurs, rubs, or gallops are appreciated. Distal pulses are 2+. No carotid bruits appreciated. ABDOMEN: Soft, nontender, and nondistended. Bowel sounds are positive. No organo megaly is appreciated. No masses are appreciated. EXTREMITIES: No peripheral edema. There is no focal long bone tenderness or deformity. SKIN: The patients skin is warm and dry, without rashes or lesions. PSYCHIATRIC: AAO x 3, normal mood/affect NEUROLOGIC: No obvious focal deficits LABORATORY DATA: reviewed IMAGING: CXR: FINDINGS: THERE IS NO ACUTE INFILTRATE OR PULMONARY EDEMA. LUNGS ARE CLEAR. HEART IS NOT SIGNIFICANTLY ENLARGED. MEDIASTINAL SILHOUETTE IS UNREMARKABLE. THE VISUALIZED OSSEOUS STRUCTURES ARE INTACT. IMPRESSION: NO ACUTE PULMONARY DISEASE. CT chest with contrast: Lungs: Small calcified granuloma right upper and left lower lobes. Bibasilar atelectasis/scarring. Noncalcified nodules left lower lobe measure up to 5.5 mm. Findings may be postinflammatory although more aggressive pathology not excluded. Patchy parenchymal infiltrates in the left upper and lower lobes may represent atelectasis/scarring although an infectious etiology not excluded. Pleural space: Unremarkable. No pneumothorax. No pleural effusion. Heart: Unremarkable. No cardiomegaly. No pericardial effusion. Mediastinal space: Moderate hiatal hernia with thickened todd demonstrated within the hiatal hernia protruding into the stomach as described on the accompanying abdominal CT report. Aorta: There is fusiform dilatation of the ascending thoracic aorta which measures 4.5 cm. maximally. There is no dissection or saccular component. Lymph nodes: Unremarkable. No enlarged lymph nodes. Bones/joints: Unremarkable. No acute fracture. Soft tissues: Unremarkable. IMPRESSION: 1. Noncalcified nodules left lower lobe measure up to 5.5 mm. Findings may be postinflammatory although more aggressive pathology not excluded. Fleischner Society follow up recommendations for incidental nodules are not indicated. Follow up per the patient's medical condition. 2. Patchy parenchymal infiltrates in the left upper and lower lobes may represent atelectasis/scarring although an infectious etiology not excluded. 3. There is fusiform dilatation of the ascending thoracic aorta which measures 4.5 cm. maximally. There is no dissection or saccular component. CT A/P with contrast: Lungs: Stellate parenchymal opacity left lower lobe may represent scarring/atelectasis. Calcified granulomas left lower lobe. Mediastinal space: A small to moderate hiatal hernia is present. Prominent soft tissue density demonstrated within the hernia and bulging into the gastric cardia. Clinical correlation to exclude neoplasm suggested. Liver: There are cysts in the liver measuring up to 2.7 cm located in the medial right lobe. No complex features demonstrated. No follow-up suggested. Liver otherwise unremarkable. Gallbladder and bile ducts: There are gallstones present. Minimal pericholecystic fluid. Clinical correlation to exclude cholecystitis suggested. Pancreas: Normal. No ductal dilation. Spleen: Normal. No splenomegaly. Adrenal glands: Normal. No mass. Kidneys and ureters: Simple cyst right kidney measures 6.9 x 5.1 cm. No follow-up suggested. Kidneys otherwise unremarkable. Stomach and bowel: Marked thickening of the wall of the rectum measuring up to 1.8 cm. Enhancement demonstrated within the rectal wall as well. Findings consistent with neoplasm. Dilatation of the right transverse and proximal left colon with increased fluid on the right. Maximum: Dimension measures up to 4.8 cm. Appendix: No evidence of appendicitis. Intraperitoneal space: Unremarkable. No free air. No significant fluid collection. Vasculature: The aortoiliac vessels demonstrate mild atherosclerotic calcification. Lymph nodes: Multiple subcentimeter lymph nodes demonstrated in the mesorectum. Urinary bladder: See "Reproductive" finding. Reproductive: The prostate gland demonstrates marked hyperplasia. Median lobe hypertrophy bulges into and elevates the bladder base. Bones/joints: Unremarkable. No acute fracture. Soft tissues: Status post bilateral inguinal herniorrhaphy's. Possible varicocele on the left. IMPRESSION: 1. There are cysts in the liver measuring up to 2.7 cm located in the medial right lobe. No complex features demonstrated. No follow-up suggested. Liver otherwise unremarkable. 2. There are gallstones present. Minimal pericholecystic fluid. Clinical correlation to exclude cholecystitis suggested. 3. A small to moderate hiatal hernia is present. Prominent soft tissue density demonstrated within the hernia and bulging into the gastric cardia. Clinical correlation to exclude neoplasm suggested. 4. Simple cyst right kidney measures 6.9 x 5.1 cm. No follow-up suggested. 5. The prostate gland demonstrates marked hyperplasia. Median lobe hypertrophy bulges into and elevates the bladder base. Marked prostatic hyperplasia. 6. Marked thickening of the wall of the rectum measuring up to 1.8 cm. Enhancement demonstrated within the rectal wall as well. Findings consistent with neoplasm. MICROBIOLOGY: Please see below. ASSESSMENT: 70-year-old M with history of GERD, external hemorrhoids who presents as transfer from [facility] for acute blood loss anemia for GI evaluation and now found ot have a rectosigmoid mass with local lymphadenopathy but no other noted distal disease, pending onc evaluation. PLAN: 1. Acute blood loss anemia, symptomatic: 2/2 GIB -Per transfer notes, initial hemoglobin at [facility] was 6.8 and repeat was found to be 5.8. Unsure of how much blood transfused at [facility] -MCV 78.1. -Reticulocyte noted to be low at 20.8. Abs reticulocyte count calculated at 0.8, indicating hypoproliferation, however i/s/o of no iron stores with a ferritin <3 -s/p 2 units packed red blood cells with good sustained response -Daily H/H - Switch to protonix 40mg daily -GI consulted s/p EGD/colo and found to have a rectosigmoid mass on imaging -getting IV iron, day 3 of 3, and will discharge him on PO iron -f/u B12 and folate -Pending onc evalution. -Consult surgery to eval for potential resection of what appears to be local without puma evidence of distant mets -f/u CEA 2. Frequent UTIs, recent dysuria: -negative UA, f/u UCx 3. GERD: -On Protonix 4. BPH: -Continue home Flomax DVT ppx: TEDs/SCDs DISPO: pending onc evaluation VS,Fishbone, I+O VS, Fishbone, I+O Laboratory Tests 09/17/20 05:24 Vital Signs Date Time Temp Pulse Resp B/P (MAP) Pulse Ox O2 Delivery O2 Flow Rate FiO2 09/16/20 22:00 97.4 83 18 112/78 (89) 98 Room Air I&O- Last 24 Hours up to 6 AM 09/17/20 06:00 Intake Total 4350 ml Output Total 300 ml Balance 4050 ml MARCOS DONG MD Sep 17, 2020 07:54
[2020-09-17 14:00] VITALS: BP 105/69
--- NOTE | 2020-09-17 14:07 | CR.PDOC ---
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 HISTORY OF PRESENT ILLNESS: Mr. Wade Campoverde is a 70-year-old man who has had rectal bleeding for many years, attributed to hemorrhoids. He noticed increased rectal bleeding for the past 2 months. He was found to have significant anemia in [facility] and was subsequently transferred to [facility] for further management. CBC here showed hemoglobin 7 g/DL. He has been transfused 2 units of packed red cells so far in [facility]. Unknown as to how many units he was transfused in [facility]. Upper endoscopy 09/16/2020 showed a large hiatal hernia. Colonoscopy 09/16/2020 showed hemorrhoids, external and internal, polyps in the ascending colon, cecum and distal descending colon. Also found was a likely malignant tumor in the recto-sigmoid colon and at 15 cm proximal to the anus. Biopsy results pending at this time. CT chest 09/16/2020: Noncalcified nodules left lower lobe measuring up to 5.5 mm. Findings deemed to be be postinflammatory although more aggressive pathology not excluded. CT abdomen and pelvis 09/16/2020: Marked thickening of the wall of the rectum measuring up to 1.8 cm. Enhancement demonstrated within the rectal wall as well. Findings consistent with neoplasm. There was note of multiple subcentimeter lymph node demonstrated in the mesorectum. ALLERGIES: Please see below. HOME MEDICATIONS: Please see below. PAST MEDICAL HISTORY: GERD BPH History of external hemorrhoids FAMILY HISTORY: His mother had liver cancer. SOCIAL HISTORY: Lifetime nonsmoker. Drinks alcohol rarely. 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 REVIEW OF SYSTEMS: CONSTITUTIONAL: No fevers. No night sweats. No weight loss. HEENT: No headaches. No dizziness. No changes in eyesight. CARDIOVASCULAR: No chest pain. No shortness of breath. No edema. RESPIRATORY: No shortness of breath. No cough. GENITOURINARY: No urinary problems. GASTROINTESTINAL: Hematochezia ongoing for a few years. No abdominal pain. No nausea. No vomiting. No diarrhea. No constipation. NEUROLOGICAL: No headaches. PSYCHIATRIC: No anxiety. HEMATOLOGIC/LYMPHATIC: Hematochezia for a few years. Otherwise, no bleeding issues. PHYSICAL EXAMINATION: VITAL SIGNS: Please see below. GENERAL APPEARANCE: Awake, alert, lying comfortably in bed, not in distress. HEENT: Pinkish conjunctivae, anicteric sclerae. Moist oral mucosa. No palpable cervical lymph nodes. RESPIRATORY: Lungs are clear. No rales or rhonchi. No wheeze. CARDIOVASCULAR: S1, S2 regular. No murmur. No gallop. ABDOMEN: Soft, nontender, positive bowel sounds, no hepatosplenomegaly. EXTREMITIES: No calf swelling, no calf tenderness, no pedal edema, no clubbing. No cyanosis. NEUROLOGICAL: Alert, oriented 3. PSYCHIATRIC: No anxiety. LABORATORY DATA: Please see below. 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 Biopsy pathology results pending at this time. CT chest, abdomen, pelvis did not show any definite evidence of metastatic disease nor regional lymphadenopathy although noted were multiple subcentimeter lymph nodes demonstrated in the mesorectum. Recommend pelvic MRI to determine if the patient needs preoperative concurrent chemotherapy RT. Above discussed with Dr. Leonard, attending surgeon. Await biopsy results. Thank you for referring Mr. Wade Campoverde. Vital Signs/I&O Vital Signs Date Time Temp Pulse Resp B/P (MAP) Pulse Ox O2 Delivery O2 Flow Rate FiO2 09/17/20 06:00 97.3 55 18 104/71 (82) 97 Room Air I&O- Last 24 Hours up to 6 AM 09/17/20 06:00 Intake Total 4610 ml Output Total 525 ml Balance 4085 ml Laboratory Data Labs 24H Laboratory Tests 2 09/17/20 05:24: Immature Granulocyte % (Auto) 0.3, Neutrophils (%) (Auto) 78.5H, Lymphocytes (%) (Auto) 14.6L, Monocytes (%) (Auto) 5.1H, Eosinophils (%) (Auto) 1.2, Basophils (%) (Auto) 0.3, Neutrophils # (Auto) 7.5, Lymphocytes # (Auto) 1.4L, Monocytes # (Auto) 0.5, Eosinophils # (Auto) 0.1, Basophils # (Auto) 0.0, Nucleated Red Blood Cells % (auto) 0.0, Anion Gap 8, Glomerular Filtration Rate > 60.0, Calcium Level 8.4L CBC/BMP Laboratory Tests 09/17/20 05:24 Microbiology Microbiology 09/14/20 Urine Culture - Final, Complete Allergies Coded Allergies: No Known Allergies (Verified Allergy, Unknown, 09/14/20) Home Medications Scheduled Multivitamins (Thera M Plus Tablet) 1 Each Tablet, 1 TAB PO DAILY, (Reported) Tamsulosin HCl (Flomax) 0.4 Mg Capsule, 0.4 MG PO QPM, (Reported) AFTER DINNER Scheduled PRN Triamcinolone Acet (Triamcinolone Acetonide 0.1% Oint) 15 Gm Oint...g., 1 DOSE TOP BID PRN for ECZEMA, (Reported) APPLIES TO BACK NEEDED WAI BAUGH MD Sep 17, 2020 14:07
[2020-09-17] MEDS ORDERED: PROHANCE 279.3MG/ML 15ML VIAL As Ordered ONE (15:18)
--- NOTE | 2020-09-17 15:20 | CR ---
CONSULTATION DATE: 09/17/2020 REASON FOR CONSULTATION: Rectal mass. HISTORY OF PRESENT ILLNESS: Patient is a 70-year-old male who presented to [facility] on September 14 due to increasing shortness of breath and weakness. He was found to have blood loss anemia that he was symptomatic from. He was transferred here from [facility] due to the anemia. He has been transfused, and Dr. Mejía saw him yesterday for a colonoscopy. On colonoscopy, he had multiple polyps. Also had what appeared to be a mass at the rectosigmoid junction. The mass at the rectosigmoid junction appeared to be cancerous, and proximal to that in the descending colon was also another large polyp that appeared to be cancerous as well, and he was able to place a tattoo just proximal to that. Patient claims that for the past 2-3 weeks he has noticed increasing weakness and shortness of breath. 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 He has had blood in his stool in the past, but he has always attributed it to large hemorrhoids. No prior colonoscopy. No family history of colon problems. No change in the caliber of his stools, and no unexplained weight loss or night sweats. MEDICAL HISTORY: 1. Frequent urinary tract infections (UTIs). 2. Gastroesophageal reflux disease (GERD). 3. BPH. 4. External hemorrhoids. SURGICAL HISTORY: Bladder stone removal. SOCIAL HISTORY: Denies drug, alcohol, or tobacco abuse. FAMILY HISTORY: Noncontributory. ALLERGIES: None. HOME MEDICATIONS: Please see medication record. REVIEW OF SYSTEMS: Pertinent positives and negatives as stated in history of present illness (HPI). PHYSICAL EXAMINATION: GENERAL: Alert and oriented (A and O) times three in no acute distress. VITAL SIGNS: Temperature 97.3, pulse 55, respirations 18, blood pressure 104/71, pulse oximetry 97% on room air. HEENT: Pupils equal, round, and reactive to light and accommodation. HEART: S1, S2, regular rate and rhythm. LUNGS: Clear to auscultation bilaterally. ABDOMEN: Soft, nontender, nondistended. EXTREMITIES: No clubbing, cyanosis, or edema. LABORATORY DATA: White count 9.5, hemoglobin 8.2, platelets 321. Potassium 3.7, creatinine 0.9. IMAGING DATA: CT abdomen and pelvis was completed and shows marked thickening of the wall of the rectum, measuring up to 1.8 cm. Enhancement demonstrated within the rectal wall as well. Findings consistent with neoplasm. There are also multiple subcentimeter lymph nodes demonstrated in the mesorectum. ASSESSMENT AND PLAN: Patient is a 70-year-old male, currently with rectal bleeding. After a discussion with Dr. Mejía, he feels that the bleeding is most likely secondary to his rectosigmoid mass. There are large external hemorrhoids, but he did not feel that that was the source. He also had this other polyp that he was highly concerned about just proximal to the mass that he tattooed as well. I also spoke with Dr. Olvera, who is concerned from the CT findings of the rectal mass, and she is concerned that it is more of a rectal mass as opposed to rectosigmoid, and she is considering setting him up for chemoradiation prior to any surgical resection. The CT findings do not coincide with Dr. Mejía's colonoscopy findings; therefore, we will proceed with a pelvic MRI next to further evaluate location of this mass and see if he would be a candidate for chemoradiation. I will discuss these findings again with the patient in the morning and see if he would have to wait for pathology results to come back prior to discussing surgery again. If not, we will plan for surgery at the next available date. If I am able to get him into the operating room (OR) for robotic surgery within the next 2-3 days, we will consider that. Otherwise, I can discharge him home after his MRI, and we can plan for an elective outpatient surgery.
--- NOTE | 2020-09-17 16:48 | REPVR ---
PROCEDURE INFORMATION: Exam: MR Pelvis Without and With Contrast, Rectum Exam date and time: 09/17/2020 3:38 PM Age: 70 years old Clinical indication: Abnormal findings; Abnormal imaging test; Other: Gi bleed; Additional info: Rectal cancer TECHNIQUE: Imaging protocol: Magnetic resonance images of the pelvis without and with intravenous contrast. Includes high resolution, T2-weighted sequences oriented to the long axis of the rectum. Victorina the elaine Guillermo Contrast material: PROHANCE; Contrast volume: 13 ml; Contrast route: INTRAVENOUS (IV); COMPARISON: CT ABD/PEL W/IV ORAL CONTRAS 09/16/2020 6:32 PM FINDINGS: PRIMARY TUMOR: Distance to the anal verge: 4.4 cm. Distance to the top of sphincter complex/anorectal junction: 0.5 cm. Craniocaudal length: 3.0 cm Relationship to anterior peritoneal reflection: Below Morphology: Annular MR-T category: T2 EMVI: Now LYMPH NODES: No suspicious lymph nodes in the perirectal tissues identified. The prostate is enlarged and heterogeneous. Consider further evaluation with prostate MRI. Intraperitoneal space: No free fluid. Bones/joints: Unremarkable. No fracture. Soft tissues: Unremarkable. IMPRESSION: Stage: T 2 N 0. Sphincter Involvement: Possible as this is less than 1 cm from the sphincter.. Suspicious extra mesorectal lymp nodes: No. Electronically signed by: Romaine Loredo On 09/17/2020 16:47:59 PM
[2020-09-17] MEDS: TAMSULOSIN 0.4 MG CAP PO SCH (20:08)
[2020-09-17 22:00] VITALS: BP 109/70
[2020-09-18] VITALS (11 sets, daily range): BP systolic 110–133; BP diastolic 73–89
[2020-09-18 06:24] LABS: BASO % 0.4 % (0.0-1.0); EOS # 0.2 10^3/uL (0.0-0.5); EOS % 4.3 % (0.0-3.0); HEMATOCRIT 26.3 % (42.0-52.0); HEMOGLOBIN 7.9 g/dl (13.5-17.5); LYMPH # 1.6 10^3/uL (1.5-5.0); LYMPH % 36.8 % (24.0-44.0); MEAN CORPUSCULAR HEMOGLOBIN 24.5 pg (27.0-33.0); MEAN CORPUSCULAR VOLUME 81.4 fl (80.0-96.0); MONO # 0.4 10^3/uL (0.0-0.8); MONO % 8.3 % (0.0-5.0); NEUTROPHILS # 2.2 10^3/uL (1.5-8.5); PLATELET COUNT, AUTOMATED 303 10^3/uL (150-450); RED BLOOD COUNT 3.23 10^6/uL (4.30-6.10); WHITE BLOOD COUNT 4.5 10^3/uL (4.0-10.0)
[2020-09-18 06:52] LABS: BLOOD UREA NITROGEN 13 MG/DL (7-18); CARBON DIOXIDE LEVEL 28 MEQ/L (21-32); CHLORIDE LEVEL 106 MEQ/L (98-107); CREATININE FOR GFR 0.88 MG/DL (0.70-1.30); GLOMERULAR FILTRATION RATE > 60.0 (>42); GLUCOSE, FASTING 76 MG/DL (70-100); POTASSIUM SERUM 3.8 MEQ/L (3.5-5.1); SODIUM LEVEL 142 MEQ/L (136-145)
[2020-09-18] MEDS: PANTOPRAZOLE 40MG TAB (PROTONIX) PO SCH (09:29)
--- NOTE | 2020-09-18 11:34 | IPNPDOC ---
Text Note Date of Service The patient was seen on 09/18/20. NOTE No acute events overnight. He is still passing blood per rectum, and his hgb dropped overnight. No other new complaints. MRI shows that the mass is low and adjacent to the anal sphincter. I attempted another rectal exam this am, and I still do not feel the mass on LEDA. VSSAF NAD abd - soft, nt, nd rectal - there are large external hemorrhoids, no palpable mass and no bleeding on LEDA labs - below A) 70y/o male with a large descending colon polyp, and a colorectal mass. Both are concerning for malignancy. P) reg diet blood transfusion await path results d/c home today f/u in office with myself and Dr. Olvera this week Esequiel Leonard DO VS,Al, I+O VS, Al, I+O Laboratory Tests 09/18/20 05:27 Vital Signs Date Time Temp Pulse Resp B/P (MAP) Pulse Ox O2 Delivery O2 Flow Rate FiO2 09/18/20 11:14 97.2 60 18 123/82 97 Room Air I&O- Last 24 Hours up to 6 AM 09/18/20 06:00 Intake Total 1640 ml Output Total 875 ml Balance 765 ml JC LEONARD DO Sep 18, 2020 11:34
--- NOTE | 2020-09-18 11:42 | DS.PDOC ---
Discharge Summary General Date of Admission Sep 14, 2020 at 18:30 Date of Discharge 09/18/2020 Attending Physician: MARCOS DONG MD Discharge Summary PROCEDURES PERFORMED DURING STAY: EGD/Ducor on 09/16/2020 ADMITTING DIAGNOSES: GIB Symptomatic anemia DISCHARGE DIAGNOSES: Symptomatic anemia LGIB Newly noted rectosigmoid mass with pending pathology Iron deficiency anemia GERD BPH Large prolapsed hemorrhoids COMPLICATIONS/CHIEF COMPLAINT: Gi Bleed. HISTORY OF PRESENT ILLNESS: 70-year-old M with a history of GERD, BPH, history of external hemorrhoids, frequent UTIs who presented as a transfer from [facility] for acute blood loss anemia. 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 He has had to take frequent breaks and has been feeling lethargic and weak. He has a long history of external hemorrhoids that intermittently bleed. He noticed his hemorrhoids bleeding in the last 3 weeks. He reached out to his primary care physician who sent him to the [facility]. Workup at [facility] was significant for hemoglobin at 6.2. He denied any black tarry stools or maroon-colored stools. He does report when his hemorrhoids are bleeding it appears as right red blood dripping in the toilet and he feels there had been a significant amount of blood in the last couple of weeks. He denied any chest pain, coughing, lightheadedness or dizziness. He had never had an EGD or colonoscopy. HOSPITAL COURSE: He arrived HDS, afebrile and stable on room air and remained comfortable with no pain or discomfort. He received a total of 2u pRBCs and had a go-lytely prep and eventual EGD/colonoscopy on 09/[address] Mejía who noted a large rectosigmoid mass and large prolapsed hemorrhoids. Pathology was sent and a CEA was ordered and is still pending with CT C/A/P with contrast revealed some non calcified pulmonary nodules, an old pulm calcified granuloma and some mild enlarged rectosigmoid lymph nodes but otherwise no other noted significant pathology. He also had some simple liver cysts and renal cysts. His H/H slowly dropped and received 2 more units on 09/18 pre-home discharge. Surgery and oncology were cons ulted and MRI of pelvis showed a rectal mass, likely T2N0 and will follow with Dr. Leonard and oncology in the next few day for discussion of resection and further characterization and treatment. DISCHARGE MEDICATIONS: Please see below. ALLERGIES: Please see below. PHYSICAL EXAMINATION ON DISCHARGE: VITAL SIGNS: Please see below. GENERAL: Alert and oriented, in no apparent distress, pleasant and conversant in full sentences. HEENT: PERRL, EOMI, Oral mucous membranes are moist without lesions. NECK: The patient has no noted JVD. No adenopathy is appreciated. No thyromegaly CHEST/LUNGS: Lungs are clear bilaterally without rhonchi, rales, or wheezes. There is no subcutaneous air appreciated. There is no tenderness to the chest wall. HEART: Regular rate and rhythm. No murmurs, rubs, or gallops are appreciated. Distal pulses are 2+. No carotid bruits appreciated. ABDOMEN: Soft, nontender, and nondistended. Bowel sounds are positive. No organomegaly is appreciated. No masses are appreciated. EXTREMITIES: No peripheral edema. There is no focal long bone tenderness or deformity. SKIN: The patients skin is warm and dry, without rashes or lesions. PSYCHIATRIC: AAO x 3, normal mood/affect NEUROLOGIC: No obvious focal deficits LABORATORY DATA: see below IMAGING: CXR: FINDINGS: THERE IS NO ACUTE INFILTRATE OR PULMONARY EDEMA. LUNGS ARE CLEAR. HEART IS NOT SIGNIFICANTLY ENLARGED. MEDIASTINAL SILHOUETTE IS UNREMARKABLE. THE VISUALIZED OSSEOUS STRUCTURES ARE INTACT. IMPRESSION: NO ACUTE PULMONARY DISEASE. CT chest with contrast: Lungs: Small calcified granuloma right upper and left lower lobes. Bibasilar atelectasis/scarring. Noncalcified nodules left lower lobe measure up to 5.5 mm. Findings may be postinflammatory although more aggressive pathology not excluded. Patchy parenchymal infiltrates in the left upper and lower lobes may represent atelectasis/scarring although an infectious etiology not excluded. Pleural space: Unremarkable. No pneumothorax. No pleural effusion. Heart: Unremarkable. No cardiomegaly. No pericardial effusion. Mediastinal space: Moderate hiatal hernia with thickened todd demonstrated within the hiatal hernia protruding into the stomach as described on the accompanying abdominal CT report. Aorta: There is fusiform dilatation of the ascending thoracic aorta which measures 4.5 cm. maximally. There is no dissection or saccular component. Lymph nodes: Unremarkable. No enlarged lymph nodes. Bones/joints: Unremarkable. No acute fracture. Soft tissues: Unremarkable. IMPRESSION: 1. Noncalcified nodules left lower lobe measure up to 5.5 mm. Findings may be postinflammatory although more aggressive pathology not excluded. Fleischner Society follow up recommendations for incidental nodules are not indicated. Follow up per the patient's medical condition. 2. Patchy parenchymal infiltrates in the left upper and lower lobes may represent atelectasis/scarring although an infectious etiology not excluded. 3. There is fusiform dilatation of the ascending thoracic aorta which measures 4.5 cm. maximally. There is no dissection or saccular component. CT A/P with contrast: Lungs: Stellate parenchymal opacity left lower lobe may represent scarring/atelectasis. Calcified granulomas left lower lobe. Mediastinal space: A small to moderate hiatal hernia is present. Prominent soft tissue density demonstrated within the hernia and bulging into the gastric cardia. Clinical correlation to exclude neoplasm suggested. Liver: There are cysts in the liver measuring up to 2.7 cm located in the medial right lobe. No complex features demonstrated. No follow-up suggested. Liver otherwise unremarkable. Gallbladder and bile ducts: There are gallstones present. Minimal pericholecystic fluid. Clinical correlation to exclude cholecystitis suggested. Pancreas: Normal. No ductal dilation. Spleen: Normal. No splenomegaly. Adrenal glands: Normal. No mass. Kidneys and ureters: Simple cyst right kidney measures 6.9 x 5.1 cm. No follow-up suggested. Kidneys otherwise unremarkable. Stomach and bowel: Marked thickening of the wall of the rectum measuring up to 1.8 cm. Enhancement demonstrated within the rectal wall as well. Findings consistent with neoplasm. Dilatation of the right transverse and proximal left colon with increased fluid on the right. Maximum: Dimension measures up to 4.8 cm. Appendix: No evidence of appendicitis. Intraperitoneal space: Unremarkable. No free air. No significant fluid collection. Vasculature: The aortoiliac vessels demonstrate mild atherosclerotic calcification. Lymph nodes: Multiple subcentimeter lymph nodes demonstrated in the mesorectum. Urinary bladder: See "Reproductive" finding. Reproductive: The prostate gland demonstrates marked hyperplasia. Median lobe hypertrophy bulges into and elevates the bladder base. Bones/joints: Unremarkable. No acute fracture. Soft tissues: Status post bilateral inguinal herniorrhaphy's. Possible varicocele on the left. IMPRESSION: 1. There are cysts in the liver measuring up to 2.7 cm located in the medial right lobe. No complex features demonstrated. No follow-up suggested. Liver otherwise unremarkable. 2. There are gallstones present. Minimal pericholecystic fluid. Clinical correlation to exclude cholecystitis suggested. 3. A small to moderate hiatal hernia is present. Prominent soft tissue density demonstrated within the hernia and bulging into the gastric cardia. Clinical correlation to exclude neoplasm suggested. 4. Simple cyst right kidney measures 6.9 x 5.1 cm. No follow-up suggested. 5. The prostate gland demonstrates marked hyperplasia. Median lobe hypertrophy bulges into and elevates the bladder base. Marked prostatic hyperplasia. 6. Marked thickening of the wall of the rectum measuring up to 1.8 cm. Enhancement demonstrated within the rectal wall as well. Findings consistent with neoplasm. MRI of pelvis: PRIMARY TUMOR: Distance to the anal verge: 4.4 cm. Distance to the top of sphincter complex/anorectal junction: 0.5 cm. Craniocaudal length: 3.0 cm Relationship to anterior peritoneal reflection: Below Morphology: Annular MR-T category: T2 EMVI: Now LYMPH NODES: No suspicious lymph nodes in the perirectal tissues identified. The prostate is enlarged and heterogeneous. Consider further evaluation with prostate MRI. Intraperitoneal space: No free fluid. Bones/joints: Unremarkable. No fracture. Soft tissues: Unremarkable. IMPRESSION: Stage: T 2 N 0. Sphincter Involvement: Possible as this is less than 1 cm from the sphincter.. Suspicious extra mesorectal lymp nodes: No. PROGNOSIS: Good ACTIVITY: As tolerated DIET: Regular DISCHARGE PLAN: Home with oncology nad surgery follow up, PCP follow up DISPOSITION: Home DISCHARGE INSTRUCTIONS: Home with surgery and oncology follow up, PCP follow up ITEMS TO FOLLOWUP ON ON OUTPATIENT: New rectal mass Anemia DISCHARGE CONDITION: Stable TIME SPENT ON DISCHARGE: 56 minutes. Vital Signs/I&Os Vital Signs Date Time Temp Pulse Resp B/P (MAP) Pulse Ox O2 Delivery O2 Flow Rate FiO2 09/16/20 22:00 97.4 83 18 112/78 (89) 98 Room Air I&O- Last 24 Hours up to 6 AM 09/17/20 06:00 Intake Total 4350 ml Output Total 300 ml Balance 4050 ml Laboratory Data Labs 24H Laboratory Tests 2 09/17/20 05:24: Immature Granulocyte % (Auto) 0.3, Neutrophils (%) (Auto) 78.5H, Lymphocytes (%) (Auto) 14.6L, Monocytes (%) (Auto) 5.1H, Eosinophils (%) (Auto) 1.2, Basophils (%) (Auto) 0.3, Neutrophils # (Auto) 7.5, Lymphocytes # (Auto) 1.4L, Monocytes # (Auto) 0.5, Eosinophils # (Auto) 0.1, Basophils # (Auto) 0.0, Nucleated Red Blood Cells % (auto) 0.0, Anion Gap 8, Glomerular Filtration Rate > 60.0, Calcium Level 8.4L CBC/BMP Laboratory Tests 09/17/20 05:24 Microbiology Microbiology 09/14/20 Urine Culture - Final, Complete Discharge Medications Scheduled Multivitamins (Thera M Plus Tablet) 1 Each Tablet, 1 TAB PO DAILY, (Reported) Tamsulosin HCl (Flomax) 0.4 Mg Capsule, 0.4 MG PO QPM, (Reported) AFTER DINNER Scheduled PRN Triamcinolone Acet (Triamcinolone Acetonide 0.1% Oint) 15 Gm Oint...g., 1 DOSE TOP BID PRN for ECZEMA, (Reported) APPLIES TO BACK NEEDED Allergies Coded Allergies: No Known Allergies (Verified Allergy, Unknown, 09/14/20) MARCOS DONG MD Sep 17, 2020 07:52
[2020-09-18] MEDS ORDERED: FERR325T3 PO (11:46)
[2020-09-27] MEDS ORDERED: FLUO5OI TOP (12:07)
== END 2020-09-18 16:36 | disposition home or self-care (01) | DRG 378 ==
LOC: M PCU 18:30 → M MSPAV 09-15 13:40
PROVIDERS: ADMIT General Practice; ATTEND Internal Medicine
PROC: 30233N1 Transfusion of Nonautologous Red Blood Cells into Peripheral Vein, Percutaneous Approach (ICD-10-PCS; principal; 2020-09-14)
PROC: 0DJ08ZZ Inspection of Upper Intestinal Tract, Via Natural or Artificial Opening Endoscopic (ICD-10-PCS; 2020-09-16)
PROC: 0DBK8ZX Excision of Ascending Colon, Via Natural or Artificial Opening Endoscopic, Diagnostic (ICD-10-PCS; 2020-09-16)
PROC: 0DBH8ZX Excision of Cecum, Via Natural or Artificial Opening Endoscopic, Diagnostic (ICD-10-PCS; 2020-09-16)
PROC: 0DBM8ZX Excision of Descending Colon, Via Natural or Artificial Opening Endoscopic, Diagnostic (ICD-10-PCS; 2020-09-16)
PROC: 0DBN8ZX Excision of Sigmoid Colon, Via Natural or Artificial Opening Endoscopic, Diagnostic (ICD-10-PCS; 2020-09-16)
DX: K92.1 Melena (principal); D62 Acute posthemorrhagic anemia; K21.9 Gastro-esophageal reflux disease without esophagitis; N40.0 Benign prostatic hyperplasia without lower urinary tract symptoms; K64.5 Perianal venous thrombosis; R91.8 Other nonspecific abnormal finding of lung field; Z87.442 Personal history of urinary calculi; K44.9 Diaphragmatic hernia without obstruction or gangrene; D17.5 Benign lipomatous neoplasm of intra-abdominal organs; K64.3 Fourth degree hemorrhoids; K63.5 Polyp of colon

== ENCOUNTER → 2020-09-27 | Outpatient (CLI) | payer MEDICARE ==
[~2020-09-27] MED LIST: FERR325T3 PO; FLOM0.4C39 PO; FLUO5OI TOP; TRIA1OI TOP; VITMTA PO
--- NOTE | 2020-09-27 13:27 | RADONC.CN ---
Radiation Oncology Hx/Consult Radiation Oncology Consult Date of Service: Sep 27, 2020 Pt Identifier Wade Campoverde is a 70 year old male with a family history of colon cancer who has a newly diagnosed T2N1M0 rectosigmoid adenocarcinoma discovered in the setting of admission for acute blood loss anemia from GIB. He is seen for consideration of neoadjuvant chemoradiation. Diagnosis/Treatment History Oncologic History No prior colonoscopy history. August 2020 noted BRBPR in excess of normal bleeding form his external hemorrhoids. Brought to attention of PCP who had him admitted to [facility]. Hgb was noted to 6.2, he was transferred to [facility] for colonoscopy on 09/14/20. 09/16/20 colonoscopy (Dr. Mejía) revealing grade IV hemorrhoids and a mass at 15 cm proximal to the anus in the RSJ was noted. Additional polyps were biopsied and a bleeding polyp at the distal colon was clipped. Pathology showed high grade dysplasia in superficial fragments invasion could not be ruled out. He had CT chest abdomen and pelvis on 09/16/20 showed no evidence of distant disease. He had a pelvic MRI which was completely discordant with the endoscopy report calling a low rectal lesion involving the levator, the superior extent of the exam is severely motion artifact degraded. Interval History Mr. Campoverde is here with his . He has no rectal pain. No brisk BRBPR since his colonoscopy. He has had 20 lb unintended weight loss prior to transfusion. He states he has had hemorrhoids for many years and that they in general do not bother him. He has been having regular PSA checks with his PCP and has undergone prostate biopsy x2 without evidence of cancer. Past Medical History: BPH Elevated PSA Hemorrhoids GIB GERD Past Surgical History: As above Family History: Father of colon cancer Mother of liver cancer BPH/prostate cancer several male relatives Social History: Non-smoker Non-drinker Allergies / Meds Allergies: Coded Allergies: No Known Allergies (Verified Allergy, Unknown, 09/14/20) Home Meds Active Scripts Fluocinonide (Fluocinonide) 0.05% 15GM Oint...g., 1 APLCT TOP BID for 14 Days, #30 GRAM 1 Refill apply to eczematous plaque(s) Prov:IMAN CAMPOS MD 09/27/20 Ferrous Sulfate (Ferrous Sulfate) 325 Mg Tablet.dr, 1 TAB PO DAILY for 30 Days, #30 TAB Prov:MARCOS DONG MD 09/18/20 Reported Medications Multivitamins (Thera M Plus Tablet) 1 Each Tablet, 1 TAB PO DAILY, TAB 09/14/20 Tamsulosin HCl (Flomax) 0.4 Mg Capsule, 0.4 MG PO QPM, CAP AFTER DINNER 09/14/20 Discontinued Reported Medications Triamcinolone Acet (Triamcinolone Acetonide 0.1% Oint) 15 Gm Oint...g., 1 DOSE TOP BID PRN for ECZEMA, OIN APPLIES TO BACK NEEDED 09/14/20 Review of Systems Constitutional: Denies: Chills, Fever, Night Sweats Eyes: Denies: Pain, Vision change HEENT: Denies: Head Aches, Dysphagia, Sore Throat Skin: Reports: Rash (Eczematoid scattered plaques 1 month); Denies: Lesions, Bruising Pulmonary: Denies: Dyspnea, Cough Cardiovascular: Denies: Chest Pain, Palpitations, Edema Gastrointestinal: Denies: Nausea, Vomiting, Abdominal Pain, Diarrhea Genitourinary: Denies: Dysuria, Frequency, Incontinence Hematologic: Denies: Bruising, Petecchia, Enlarged Lymph Nodes Musculoskeletal: Denies: Neck pain, Back pain Neurological: Denies: Weakness, Numbness, Incoordination Psych: Reports: Mood Normal; Denies: Memory Issues, Thoughts of Self Harm Vital Signs Ht 68" Wt 155 lb BMI 23 T 97 P 59 RR 18 BP 130/86 O2 98% Pain 0 Fatigue 0 General Exam: Positive: Alert, Cooperative, No Acute Distress Eye Exam: Positive: PERRLA, EOMI ENT EXAM: Positive: Mucous membr. moist/pink, Pharynx Normal Neck Exam: Negative: Thyromegaly, Lymphadenopathy Chest Exam: Positive: Normal air movement; Negative: Rales, Rhonchi, Wheezing Heart Exam: Positive: Rate Normal, Regular Rhythm Abdomen Exam: Positive: Soft; Negative: Tenderness, Mass Extremity Exam: Negative: Edema, Tenderness Skin Exam: Positive: Nl turgor and temperature, Rash (scattered dry eczematous plaques, mostly extensor surfaces, nb left shoulder, left mid abdomen) Neuro Exam: Positive: Normal Gait, Normal Speech, Cranial Nerves 3-12 NL Psych Exam: Positive: Mental status NL, Mood NL, Memory Intact Other Physical Findings LEDA: Prostate enlarged boggy, non-tender, no nodules. Grade IV prolapsed hemorrhoids, extensive redundant hemorrhoidal tissue, no mucosal lesions or induration to suggest malignancy. Diagnostic and Laboratory Diagnostic Review Radiologic images, relevant labs and pathology reports were personally reviewed and discussed with Mr. Campoverde. Assessment and Plan Impression Mr. Campoverde is a 70 year old male with a family history of colon cancer who has a newly diagnosed T2N0M0 rectosigmoid adenocarcinoma discovered in the setting of admission for acute blood loss anemia from GIB. He is seen for consideration of neoadjuvant chemoradiation. Stage Rectosigmoid adenocarcinoma T2N0M0 Stage IIA Performance Status ECOG 0 Plan We had an extensive discussion with Mr. Campoverde regarding the diagnosis at hand and available therapeutic options. His pathology though equivocal with respect to invasion showed high grade dysplasia and the endoscopy report demonstrated a 5 cm x 3 cm jazmin circumferential mass at 15 cm proximal to the anus. This in clinical context is a malignancy. On review of the MRI there are two problems, one the professional fighter of the study has called his extensive hemorrhoidal tissue cancer, which I believe is in error, as there is no suggestion of anything other than hemorrhoidal tissue on LEDA or on the endoscopy report and two, the superior ex tent of the study (ie the RSJ) is too motion degraded to assess for extent of disease there. There are no suspicious perirectal LN however, which is somewhat reassuring. Given the discordance it would be reasonable to repeat the MRI with attention to the area of interest the RSJ, or to repeat flexible sigmoidoscopy for a deeper biopsy and clarification of the discordance. Additional tissue would also potentially allow for molecular typing of his cancer which is appropriate in the context of his family history. I defer to Dr. Olvera and Dr. Leonard as to the utility of this. I defer because with respect to neoadjuvant therapy it would not alter my recommendation for chemoradiation, which would be optimal in his case and minimally toxic as with a high rectal tumor T2-3N0, his chance for a LAR and reanastomosis without complication is good on its own. However with the unclear extent of disease, some downstaging and elective stefano irradiation will only increase the ostomy free survival and LRC outcome probability. It will also greatly minimize the risk of subsequent GIB from the rectal lesion. It would also obviate the need for any postoperative RT which is less effective and more toxic than preoperative. Contingent upon response, he may also be eligible for non-operative management (ie watch and wait), which he expressed some interest in today. I think it would be reasonable to proceed with chemoradiation immediately, I will defer to the endoscopy report to localize the boost volume at the top of the field with appropriate margin and give 50.4 Gy in 28 fractions with concurrent xeloda or 5-FU per Dr. Olvera's preference. I will treat him in the prone position. We discussed the logistics of receiving radiation therapy in detail including the need for a 1-time planning session. We reviewed the toxicities of treatment including fatigue and diarrhea. After discussing the risks, benefits and alternatives to radiation therapy, Mr. Campoverde was amenable to pursuing radiotherapy. All questions were answered to the patient's satisfaction. We instructed the patient that if there were any questions,concerns or changes in clinical status in the interim to contact us. I will follow up Dr. Olvera's recommendations prior to proceeding. Recommendations Neoadjuvant chemoradiation to the rectosigmoid tumor as described Defer to medical oncology and surgery re: need for re-biopsy/repeat imaging Consider MSI/MMR testing due to family history Simulation in the coming week Total time of (40) minutes was spent preparing for the visit (10), obtaining HPI (10), examining the patient (3), reviewing diagnostic tests (2), discussing management options (5), coordinating care (2), and writing this note (8). IMAN CAMPOS MD Sep 27, 2020 13:24
--- NOTE | 2020-09-28 09:59 | RADENCPD ---
Date/Time of Encounter Date of Encounter: Sep 28, 2020 Time of Encounter: 09:[address] Olvera has referred the patient to Dr. Aguayo for EUS and re-biopsy, I fully agree with this step. Will finalize plan after the repeat endoscopy. If T3 or question of CRM then would offer chemoradiation unequivocally. If T2, I would offer neoadjuvant chemoradiation or short course RT alone, due to increased toxicity of chemo and radiation in the adjuvant setting, which given the discordant staging thus far (endoscopy report, contradicting CT, contradicting MRI etc.), in my view renders him at higher risk of needing adjuvant treatment if this discordance is not resolved completely by EUS. Will see the patient back after his scope. Can present the case at tumor board as well once we have final pathology for consensus. IMAN CAMPOS MD Sep 28, 2020 09:59
== END ==
LOC: M ONCR 10:51
PROVIDERS: ATTEND General Practice
DX: D37.5 Neoplasm of uncertain behavior of rectum (principal); N40.0 Benign prostatic hyperplasia without lower urinary tract symptoms; K21.9 Gastro-esophageal reflux disease without esophagitis; Z80.0 Family history of malignant neoplasm of digestive organs

== ENCOUNTER 2020-11-04 07:30 | Inpatient (IN) | payer MEDICARE, OTHER ==
[~2020-11-04] VITALS: Ht 170.2 cm; Wt 67.9 kg
[~2020-11-04 07:30] MED LIST changes: +FERR324T2 PO
[2020-11-14] VITALS (8 sets, daily range): BP systolic 93–112; BP diastolic 56–63
[2020-11-14] MEDS ORDERED: LIDOCAINE 1% MDV 20ML VIAL SQ PRN (06:00)
[2020-11-14] MEDS ORDERED: BUPIVACAINE/EPIN 0.25% 30 ML VIAL As Ordered ONE (06:45)
[2020-11-14] MEDS ORDERED: LR 1,000 ML IV ONE (07:00)
[2020-11-14] MEDS ORDERED: cefoTEtan DISODIUM 1 GM in D5W MINI-BAG PLUS 50 ML IV ONE (07:00)
[2020-11-14] MEDS ORDERED: MIDAZOLAM INJ 2MG/2ML VIAL (J2250 PER 1MG) As Ordered ONE (07:15)
[2020-11-14] MEDS ORDERED: LIDOCAINE 2% 100MG/5ML SDV (FOR ANES.) As Ordered ONE (07:15)
[2020-11-14] MEDS ORDERED: fentaNYL 250 MCG/5 ML INJECTION (J3010) As Ordered ONE (07:15)
[2020-11-14] MEDS ORDERED: propofoL 200 MG/20 ML VIAL As Ordered ONE (07:15)
[2020-11-14] MEDS ORDERED: ROCURONIUM BROMIDE 50 MG/5 ML VIAL As Ordered ONE ×2 (07:15→08:04)
[2020-11-14] MEDS ORDERED: METOCLOPRAMIDE INJ 10MG/2ML VIAL (J2765 PER 1) As Ordered ONE (07:46)
[2020-11-14] MEDS ORDERED: ePHEDrine SULFATE 25 MG/5 ML(5MG/ML) SYRINGE As Ordered ONE (07:53)
[2020-11-14] MEDS ORDERED: GLYCOPYRROLATE INJ 0.2 MG/ML 2 ML VIAL As Ordered ONE (08:13)
[2020-11-14] MEDS ORDERED: HYDROmorphone HCL 2 MG/ML 1ML VIAL (J1170) As Ordered ONE (08:23)
[2020-11-14] MEDS ORDERED: ACETAMINOPHEN 1000MG 100ML IV BTL (OFIRMEV) (J0131 PER 10MG) As Ordered ONE (08:26)
[2020-11-14] MEDS ORDERED: ONDANSETRON 4MG/2ML VIAL As Ordered ONE (08:26)
[2020-11-14] MEDS ORDERED: SUGAMMADEX SODIUM 500 MG/5 ML VIAL (BRIDION) As Ordered ONE (08:26)
[2020-11-14] MEDS ORDERED: fentaNYL 100 MCG/2 ML INJECTION (J3010) As Ordered ONE (10:33)
[2020-11-14] MEDS ORDERED: ONDANSETRON 4MG/2ML VIAL IV PRN ×2 (10:40→11:05)
[2020-11-14] MEDS ORDERED: oxyCODONE 5MG TAB PO PRN (10:40)
[2020-11-14] MEDS ORDERED: MORPHINE 2 MG/ML 1ML VIAL (J2270) IV PRN (10:40)
[2020-11-14] MEDS ORDERED: fentaNYL 100 MCG/2 ML INJECTION (J3010) IV PRN (10:40)
[2020-11-14] MEDS ORDERED: LR 1,000 ML IV SCH (10:40)
[2020-11-14] MEDS ORDERED: NORCO, ANEXSIA 5/325MG TABLET (HYDROcodone/ACETAMINOPHEN) PO PRN (11:05)
[2020-11-14] MEDS ORDERED: KETOROLAC 30 MG/ML 1ML VIAL IV PRN (11:05)
[2020-11-14] MEDS ORDERED: LACTATED RINGER'S 1000 ML IV ONE (11:40)
[2020-11-14] MEDS: PANTOPRAZOLE 40MG TAB (PROTONIX) PO SCH (13:02)
[2020-11-14] MEDS: NS 1,000 ML IV SCH ×2 (13:02→20:12)
[2020-11-14] MEDS: PIPERACILLIN/TAZOBACTAM SOD 3.375 GM in D5W MINI-BAG PLUS 50 ML IV SCH ×2 (13:48→20:12)
[2020-11-14] MEDS: TAMSULOSIN 0.4 MG CAP PO SCH (20:12)
[2020-11-14] MEDS: SENOKOT S TAB PO SCH (20:12)
[2020-11-15] MEDS: NORCO, ANEXSIA 5/325MG TABLET (HYDROcodone/ACETAMINOPHEN) PO PRN ×3 (01:08→23:29)
[2020-11-15] MEDS: PIPERACILLIN/TAZOBACTAM SOD 3.375 GM in D5W MINI-BAG PLUS 50 ML IV SCH ×2 (01:08→08:21)
[2020-11-15 02:00] VITALS: BP 122/75
[2020-11-15] MEDS: NS 1,000 ML IV SCH (02:22)
[2020-11-15 05:59] LABS: HEMATOCRIT 33.7 % (42.0-52.0); HEMOGLOBIN 11.1 g/dl (13.5-17.5); MEAN CORPUSCULAR HEMOGLOBIN 29.2 pg (27.0-33.0); MEAN CORPUSCULAR HGB CONC 32.9 g/dl (32.0-36.5); MEAN CORPUSCULAR VOLUME 88.7 fl (80.0-96.0); PLATELET COUNT, AUTOMATED 218 10^3/uL (150-450); WHITE BLOOD COUNT 7.4 10^3/uL (4.0-10.0)
[2020-11-15 06:00] VITALS: BP 118/74
[2020-11-15 06:30] LABS: BLOOD UREA NITROGEN 8 MG/DL (7-18); CALCIUM LEVEL 7.9 MG/DL (8.8-10.2); CARBON DIOXIDE LEVEL 27 MEQ/L (21-32); CHLORIDE LEVEL 106 MEQ/L (98-107); CREATININE FOR GFR 0.94 MG/DL (0.70-1.30); GLOMERULAR FILTRATION RATE > 60.0 (>42); GLUCOSE, FASTING 91 MG/DL (70-100); POTASSIUM SERUM 4.1 MEQ/L (3.5-5.1); SODIUM LEVEL 138 MEQ/L (136-145)
[2020-11-15] MEDS: SENOKOT S TAB PO SCH ×2 (08:20→20:54)
[2020-11-15] MEDS: PANTOPRAZOLE 40MG TAB (PROTONIX) PO SCH (08:20)
[2020-11-15] MEDS: ENOXAPARIN 40MG/0.4ML SYRINGE (J1650 PER 10MG) SC SCH (08:21)
--- NOTE | 2020-11-15 10:00 | RO ---
OPERATIVE NOTE DATE OF OPERATION: 11/14/2020 PREOPERATIVE DIAGNOSIS: Sigmoid colon cancer POSTOPERATIVE DIAGNOSIS: High rectal cancer. PROCEDURE: Robotic low anterior resection. SURGEON: Marko Leonard DO MATHEMATICS IMPROVEMENT TEACHER: Fabiola Garrett and Dr. Villavicencio, who assisted with one robot as well as specimen retrieval and anastomosis. ANESTHESIA: General. ESTIMATED BLOOD LOSS: 25 ml. COMPLICATIONS: None. INDICATIONS FOR PROCEDURE: The patient is a 70-year-old male who presented with rectal bleeding and found to have a mass near his rectum on initial CAT scan and MRI and ultrasound which revealed that the mass is actually about 15 cm at the rectosigmoid junction and was recommended resection. Recommendation was to proceed with robotic resection. Risks and benefits of the procedure were not limited to, but including bleeding, infection, hernia formation, damage to surrounding structures and need for further surgery and anastomotic leak were discussed in detail with the patient. Informed consent was obtained and procedure was planned. DESCRIPTION OF PROCEDURE: The patient was brought back to the operating room 7. After sufficient sedation, the abdomen was sterilely prepped and draped. Next, time-out was done to confirm properly patient and proper procedure. Following that, an 8 mm incision made in the left upper quadrant, a Veress needle was inserted and the abdomen was insufflated to 50 mmHg. The Veress needle was then removed and an 8 mm Optiview port was used to gain access to the abdomen. Once the abdomen was entered, two more ports were placed diagonally from the left upper quadrant down to the right lower quadrant. The 12 mm port was placed just to the right and inferior of the umbilicus. After all of the ports were placed, the patient was placed in Trendelenburg about 25 degrees. The robot was the docked to the ports. Next, from the console, the lateral peritoneal reflexion was taken down along the entire left side of the sigmoid colon down to the rectum. The mass was easily identified, externally. Once dissection was completed, lateral to medial from that side, the colon was elevated up in the air. The distal sigmoid was elevated superiorly. The mesocolon was dissected free using the vessel sealer and then the colon was transected using a green load of 60 mm stapler. The colon was then elevated up in the air. The mesentery was dissected free medially and then posterior to the rectum heading distally until I was at least 5 cm distal to the mass. Once that was completed, the colon was transected again using another 60 mm stapler. Once this was completed, the specimen was moved out of the pelvis. The sigmoid colon was brought down into the pelvis to make sure that it was reached, which I did successfully. The ureter was identified and was safely out of the way. Once this was completed, the abdomen was desulfated. A 5 mm incision made inferior to the umbilicus. The incision was carried all the way down through the fascia into the abdomen. A wound protector was then placed and specimen was retrieved, followed by pulling up the distal sigmoid colon. The staple line was cut off and EEA and 25 mm Anvil was then placed inside the colon. Pursestring suture with 2-0 Prolene was then used to connect the sigmoid colon to the Anvil. Once this was completed, the colon was placed back inside of the abdomen. The 19 Swedish Cong was placed inside the abdomen. The incision was then closed with a running #1 PDS suture. Once this was completed, the EEA stapler was brought into the rectum using the laparoscope and a couple weighted graspers, was able to connect the Anvil to the stapler and complete the anastomosis. Once the anastomosis was completed, insufflation was passed through the rectum while the pelvis was filled with saline and air was insufflated, revealing there were no air bubbles. Once that was completed, the Cong drain was placed next to the anastomosis, brought out through the 12 mm port site, sutured to the skin with a 2-0 silk suture. The rest of the ports were removed. Skin incisions were all closed with michelle. The abdomen was cleaned and dried. 4 x 4 and tape were applied.
[2020-11-15 10:26] VITALS: BP 129/76
--- NOTE | 2020-11-15 10:39 | IPNPDOC ---
Text Note Date of Service The patient was seen on 11/15/20. NOTE General Surgery Dr Leonard. The patient is a 70-year-old male found to have a mass at rectosigmoid junction recommended to have resection, now status post robotic low anterior resection as per Dr. Leonard 11/14/20. This morning, the patient is sitting up in bed. Tolerating clear liquids. Denies nausea or vomiting. Reports abdominal pain is controlled. Reports no flatus, no BM yet. Tmax 99.0 VSS General. Awake and alert, no acute distress. Moist mucous membranes Lungs clear to auscultation S1 and S2 regular rate rhythm Abdomen. Flat, soft, mild tenderness around surgical sites. Surgical dressings are c/d/i. TAE drain in place. Dozier catheter in place. Extremities no edema I/O 2750/1010, +1740 TAE drain 75 mL. WBC 7.4, hemoglobin 11.1, platelets 218 Surgical pathology pending. Assessment/plan 70-year-old male found to have a mass at rectosigmoid junction recommended to have resection, now status post robotic low anterior resection as per Dr. Leonard 11/14/20. IVF 125cc/hr DC IV antibiotics DC Dozier Tolerating clear liquids Encourage out of bed/ambulation VS,Valentinoe, I+O VS, Valent[place]e, I+O Laboratory Tests 11/15/20 05:47 Vital Signs Date Time Temp Pulse Resp B/P (MAP) Pulse Ox O2 Delivery O2 Flow Rate FiO2 11/15/20 06:00 98.5 55 17 118/74 (89) 100 Nasal Cannula 1.0 I&O- Last 24 Hours up to 6 AM 11/15/20 05:59 Intake Total 3100 ml Output Total 1010 ml Balance 2090 ml Rita Chaudhry Nov 15, 2020 10:29
[2020-11-15 14:00] VITALS: BP 152/75
[2020-11-15] MEDS: TAMSULOSIN 0.4 MG CAP PO SCH (20:54)
[2020-11-15 22:00] VITALS: BP 117/75
[2020-11-16 02:00] VITALS: BP 126/78
[2020-11-16] MEDS: NORCO, ANEXSIA 5/325MG TABLET (HYDROcodone/ACETAMINOPHEN) PO PRN (05:27)
[2020-11-16 06:00] VITALS: BP 126/79
[2020-11-16 06:28] LABS: HEMATOCRIT 36.2 % (42.0-52.0); HEMOGLOBIN 11.7 g/dl (13.5-17.5); MEAN CORPUSCULAR HEMOGLOBIN 29.3 pg (27.0-33.0); MEAN CORPUSCULAR HGB CONC 32.3 g/dl (32.0-36.5); MEAN CORPUSCULAR VOLUME 90.7 fl (80.0-96.0); PLATELET COUNT, AUTOMATED 241 10^3/uL (150-450); RED BLOOD COUNT 3.99 10^6/uL (4.30-6.10); WHITE BLOOD COUNT 5.6 10^3/uL (4.0-10.0)
[2020-11-16 06:46] LABS: BLOOD UREA NITROGEN 5 MG/DL (7-18); CALCIUM LEVEL 8.5 MG/DL (8.8-10.2); CARBON DIOXIDE LEVEL 28 MEQ/L (21-32); CHLORIDE LEVEL 106 MEQ/L (98-107); CREATININE FOR GFR 0.81 MG/DL (0.70-1.30); GLOMERULAR FILTRATION RATE > 60.0 (>42); GLUCOSE, FASTING 88 MG/DL (70-100); POTASSIUM SERUM 4.1 MEQ/L (3.5-5.1); SODIUM LEVEL 140 MEQ/L (136-145)
[2020-11-16] MEDS: PANTOPRAZOLE 40MG TAB (PROTONIX) PO SCH (10:10)
[2020-11-16] MEDS: SENOKOT S TAB PO SCH ×2 (10:10→20:06)
[2020-11-16] MEDS: ENOXAPARIN 40MG/0.4ML SYRINGE (J1650 PER 10MG) SC SCH (10:10)
[2020-11-16 14:00] VITALS: BP 139/86
[2020-11-16] MEDS: TAMSULOSIN 0.4 MG CAP PO SCH (20:06)
[2020-11-16 20:11] VITALS: BP 142/87
--- NOTE | 2020-11-16 21:05 | IPNPDOC ---
Text Note Date of Service The patient was seen on 11/16/20. NOTE No acute events overnight. pain is controlled. tolerating diet. Denies nausea or vomiting. no flatus, No BM. VSSAF NAD Abdomen. Mildly distended but soft. TTP appropriate, neto drain serosanguinous Labs - below Surgical pathology pending. Assessment/plan 70y/o male s/p RA LAR for colon ca saline lock IV full liquids drain in place. Encourage out of bed/ambulation. DVT px. Lovenox SQ. VS,Fishbone, I+O VS, Fishbone, I+O Laboratory Tests 11/16/20 06:13 Vital Signs Date Time Temp Pulse Resp B/P (MAP) Pulse Ox O2 Delivery O2 Flow Rate FiO2 11/16/20 20:11 97.8 56 16 142/87 (105) 97 Room Air 11/15/20 06:00 1.0 I&O- Last 24 Hours up to 6 AM 11/16/20 06:00 Intake Total 1640 ml Output Total 2470 ml Balance -830 ml JC GARVIN DO Nov 16, 2020 21:05
[2020-11-17 06:00] VITALS: BP 140/80
[2020-11-17 06:32] LABS: HEMATOCRIT 35.8 % (42.0-52.0); HEMOGLOBIN 11.7 g/dl (13.5-17.5); MEAN CORPUSCULAR HEMOGLOBIN 29.2 pg (27.0-33.0); MEAN CORPUSCULAR HGB CONC 32.7 g/dl (32.0-36.5); MEAN CORPUSCULAR VOLUME 89.3 fl (80.0-96.0); PLATELET COUNT, AUTOMATED 252 10^3/uL (150-450); RED BLOOD COUNT 4.01 10^6/uL (4.30-6.10); WHITE BLOOD COUNT 5.1 10^3/uL (4.0-10.0)
[2020-11-17 06:58] LABS: BLOOD UREA NITROGEN 5 MG/DL (7-18); CALCIUM LEVEL 8.7 MG/DL (8.8-10.2); CARBON DIOXIDE LEVEL 31 MEQ/L (21-32); CHLORIDE LEVEL 105 MEQ/L (98-107); CREATININE FOR GFR 0.68 MG/DL (0.70-1.30); GLOMERULAR FILTRATION RATE > 60.0 (>42); GLUCOSE, FASTING 96 MG/DL (70-100); SODIUM LEVEL 140 MEQ/L (136-145)
[2020-11-17] MEDS: PANTOPRAZOLE 40MG TAB (PROTONIX) PO SCH (08:47)
[2020-11-17] MEDS: ENOXAPARIN 40MG/0.4ML SYRINGE (J1650 PER 10MG) SC SCH (08:48)
[2020-11-17] MEDS: SENOKOT S TAB PO SCH (08:51)
--- NOTE | 2020-11-17 11:46 | IPNPDOC ---
Text Note Date of Service The patient was seen on 11/17/20. NOTE General Surgery Dr Leonard. The pt states this am he has been having diarrhea about every 30 minutes since MN. Liquid brown. Has noticed some pain LLQ area, sharp, worse with movement. Has been tolerating Full liq diet. Denies nausea or vomiting. VSSAF NAD S1S2 RRR Lungs CTA Abdomen. Mildly distended but soft. Mild TTP LLQ, ralph drain serosanguinous extremities, no edema. Labs with no leukocytosis, Hgb 11.7 RALPH 40 ml yesterday I/O not accurately recorded. Surgical pathology Rectum, resection: Invasive colorectal adenocarcinoma, well to moderately differentiated and focally invades muscularis propria. -4/TR. Tumor size: 5.0 x 4.0cm. No lymphovascular invasion identified. Margins are uninvolved by invasive carcinoma. Twenty-five lymph nodes negative for metastatic carcinoma (0/). pT2, pN0. Assessment/plan 70y/o male s/p RA LAR for Colon Ca The pt is reviewed with Dr Leonard. Surgical pathology as above. Advance to regular diet drain in place. Encourage out of bed/ambulation. DVT px. Lovenox SQ. VS,Fishbone, I+O VS, Fishbone, I+O Laboratory Tests 11/17/20 05:49 Vital Signs Date Time Temp Pulse Resp B/P (MAP) Pulse Ox O2 Delivery O2 Flow Rate FiO2 11/17/20 06:00 97.5 60 17 140/80 (100) 98 Room Air 11/15/20 06:00 1.0 I&O- Last 24 Hours up to 6 AM 11/17/20 05:59 Intake Total 2240 ml Output Total 40 ml Balance 2200 ml Rita Chaudhry Nov 17, 2020 11:39
[2020-11-17 14:18] VITALS: BP 137/86
--- NOTE | 2020-11-17 15:13 | DS.PDOC ---
Discharge Summary General Date of Admission Nov 14, 2020 at 06:00 Date of Discharge 11/17/20 Discharge Summary PROCEDURES PERFORMED DURING STAY: robotic low anterior resection as per Dr. Leonard 11/14/20. ADMITTING DIAGNOSES: Sigmoid colon cancer, colonoscopy with mass at rectosigmoid junction DISCHARGE DIAGNOSES: Sigmoid colon cancer, colonoscopy with mass at rectosigmoid junction, now status post robotic low anterior resection as per Dr. Leonard 11/14/20. HISTORY OF PRESENT ILLNESS: The patient is a 70-year-old male who had been having rectal bleeding and became anemic, colonoscopy was completed indicating mass at rectosigmoid junction with pathology indicating invasive moderately to poorly differentiated a dental carcinoma. The patient is status post robotic low anterior resection as per Dr. Leonard 11/14/20. HOSPITAL COURSE: The patient has recovered well postoperatively. Pain has been well controlled. Postoperative day #1 the patient was tolerating clear liquids. He was up out of bed. Postoperative day #2 the patient was advanced to full liquids but had still not had flatus or BM. By postoperative day #3 the patient was having bowel movements. He was tolerating regular diet. No nausea or vomiting. Abdominal pain was well-controlled and he has had no pain medication thus far today. His TAE drain was removed. The patient was felt stable for discharge as per Dr. Leonrad with outpatient follow-up. DISCHARGE MEDICATIONS: Please see below. ALLERGIES: Please see below. PHYSICAL EXAMINATION ON DISCHARGE: VITAL SIGNS: Please see below. GENERAL: Comfortable, awake and alert HEENT: MMM CARDIOVASCULAR EXAMINATION: RRR RESPIRATORY EXAMINATION: Clear to auscultation ABDOMINAL EXAMINATION: Flat, soft, mild tenderness around surgical sites. TAE drain removed. EXTREMITIES: No edema NEUROLOGICAL EXAMINATION: No Focal deficits LABORATORY DATA: Please see below. Surgical pathology Patient Name: LUPIS RICHARDSON Unit#: [id number] Spec#: [id number] Page 1 of 1 FINAL DIAGNOSIS Rectum, resection: Invasive colorectal adenocarcinoma, well to moderately differentiated and focally invades muscularis propria. -4/TR. Tumor size: 5.0 x 4.0cm. No lymphovascular invasion identified. Margins are uninvolved by invasive carcinoma. Twenty-five lymph nodes negative for metastatic carcinoma (0/25). pT2, pN0. Please see synoptic report below SYNOPTIC REPORT: COLON, RECTUM, RESECTION - ADENOCARCINOMA GRADE Well to moderately differentiated SIZE 5 x 4cm QUALITY OF MESORECTAL EXCISION - Good EXTENT OF INVASION - Focally invades muscularis propria EXTRAMURAL TUMOR DEPOSITS Not identified PERINEURAL INVASION - Not identified LYMPH-VASCULAR INVASION - Not identified PROXIMAL MARGIN Uninvolved by invasive carcinoma DISTAL MARGIN - Uninvolved by invasive carcinoma RADIAL MARGIN - Uninvolved by invasive carcinoma TREATMENT EFFECT: No known presurgical therapy LYMPH NODES, (25.), PERIRECTAL, EXCISION - NO SIGNIFICANT PATHOLOGIC CHANGES. pT N: pT2, pN0 Note: molecular studies results to follow; 11/15/20 - 1313 DISCHARGE INSTRUCTIONS: Discharge home Follow-up with Dr. Leonard in 2 weeks ACTIVITY: As tolerated. No lifting greater than 20 pounds. No baths for 5 days. May shower. Continue to keep surgical sites clean and dry. Dry dressing daily. DIET: Regular The patient follows with Dr. Olvera, oncology, as outpatient. DISCHARGE PLAN: Discharge home DISCHARGE CONDITION: Stable. TIME SPENT ON DISCHARGE: Greater than 30 minutes. Vital Signs/I&Os Vital Signs Date Time Temp Pulse Resp B/P (MAP) Pulse Ox O2 Delivery O2 Flow Rate FiO2 11/17/20 14:18 98.0 55 18 137/86 (103) 99 11/17/20 06:00 Room Air 11/15/20 06:00 1.0 I&O- Last 24 Hours up to 6 AM 11/17/20 06:00 Intake Total 2440 ml Output Total 20 ml Balance 2420 ml Laboratory Data Labs 24H Laboratory Tests 2 11/17/20 05:49: Nucleated Red Blood Cells % (auto) 0.0, Anion Gap 4L, Glomerular Filtration Rate > 60.0, Calcium Level 8.7L CBC/BMP Laboratory Tests 11/17/20 05:49 Discharge Medications Scheduled Ferrous Sulfate (Ferrous Sulfate) 324 Mg Tablet.dr, 324 MG PO QAM, (Reported) Fluocinonide (Fluocinonide) 0.05% 15GM Oint...g., 1 APLCT TOP BIDP, (Reported) apply to affected area(s) Multivitamins (Thera M Plus Tablet) 1 Each Tablet, 1 TAB PO DAILY, (Reported) Tamsulosin HCl (Flomax) 0.4 Mg Capsule, 0.4 MG PO QPM, (Reported) AFTER DINNER Allergies Coded Allergies: No Known Allergies (Verified Allergy, Unknown, 10/27/20) Rita Chaudhry Nov 17, 2020 15:08
== END 2020-11-17 15:30 | disposition home or self-care (01) | DRG 331 ==
LOC: M OR 11-14 06:00 → M MS5PR 11-14 11:55
PROVIDERS: ADMIT Surgery; ATTEND Surgery
PROC: 0DBP4ZZ Excision of Rectum, Percutaneous Endoscopic Approach (ICD-10-PCS; 2020-11-14)
PROC: 8E0W4CZ Robotic Assisted Procedure of Trunk Region, Percutaneous Endoscopic Approach (ICD-10-PCS; 2020-11-14)
PROC: 0DBN4ZZ Excision of Sigmoid Colon, Percutaneous Endoscopic Approach (ICD-10-PCS; principal; 2020-11-14 07:30)
DX: C19 Malignant neoplasm of rectosigmoid junction (principal); K21.9 Gastro-esophageal reflux disease without esophagitis

== ENCOUNTER → 2020-11-09 | Outpatient (CLI) | payer MEDICARE | LOC: M LABSMTC 11:19 | PROVIDERS: ATTEND Anesthesiology | DX: Z01.812 Encounter for preprocedural laboratory examination (principal); Z20.822 Contact with and (suspected) exposure to COVID-19 ==

== ENCOUNTER 2020-11-23 09:23 | Emergency (ER) | payer OTHER ==
[~2020-11-23] VITALS: Ht 170.2 cm; Wt 65.3 kg
[2020-11-23 10:20] LABS: BASO % 0.4 % (0.0-1.0); EOS % 0.5 % (0.0-3.0); HEMATOCRIT 41.2 % (42.0-52.0); HEMOGLOBIN 13.7 g/dl (13.5-17.5); LYMPH # 1.1 10^3/uL (1.5-5.0); MEAN CORPUSCULAR HEMOGLOBIN 29.5 pg (27.0-33.0); MEAN CORPUSCULAR HGB CONC 33.3 g/dl (32.0-36.5); MEAN CORPUSCULAR VOLUME 88.8 fl (80.0-96.0); MONO # 0.7 10^3/uL (0.0-0.8); MONO % 8.4 % (2.0-8.0); NEUTROPHILS # 6.4 10^3/uL (1.5-8.5); NEUTROPHILS % 77.3 % (36.0-66.0); PLATELET COUNT, AUTOMATED 389 10^3/uL (150-450); RED BLOOD COUNT 4.64 10^6/uL (4.30-6.10); WHITE BLOOD COUNT 8.3 10^3/uL (4.0-10.0)
[2020-11-23] MEDS ORDERED: NS 1,000 ML IV SCH (10:20)
[2020-11-23 10:52] LABS: BLOOD UREA NITROGEN 11 MG/DL (7-18); CALCIUM LEVEL 8.6 MG/DL (8.8-10.2); CARBON DIOXIDE LEVEL 22 MEQ/L (21-32); CHLORIDE LEVEL 107 MEQ/L (98-107); GLOMERULAR FILTRATION RATE > 60.0 (>42); GLUCOSE, FASTING 91 MG/DL (70-100); POTASSIUM SERUM 4.2 MEQ/L (3.5-5.1); SODIUM LEVEL 137 MEQ/L (136-145)
[2020-11-23] MEDS ORDERED: VANCOMYCIN ORAL SOL 250MG/5ML ORAL SYRINGE PO ONE (12:20)
[2020-11-23] MEDS ORDERED: VANC125C3 PO (13:02)
[2020-11-23 13:15] VITALS: BP 137/82
== END 2020-11-23 13:53 | disposition home or self-care (01) ==
LOC: M ED 09:23 → EDBD 09:23 → M ED 13:53
DX: A04.72 Enterocolitis due to Clostridium difficile, not specified as recurrent (principal); C19 Malignant neoplasm of rectosigmoid junction; K21.9 Gastro-esophageal reflux disease without esophagitis; Z79.899 Other long term (current) drug therapy

== ENCOUNTER → 2021-12-29 | Outpatient (CLI) | payer MEDICARE, OTHER ==
[~2021-12-29] MED LIST changes: +VANC125C3 PO
== END ==
LOC: M LABSMTC 10:43
PROVIDERS: ATTEND Anesthesiology
DX: Z01.812 Encounter for preprocedural laboratory examination (principal); Z20.822 Contact with and (suspected) exposure to COVID-19

== ENCOUNTER 2022-01-03 10:29 | Day surgery (SDC) | payer OTHER ==
[~2022-01-03] VITALS: Ht 170.2 cm; Wt 67.1 kg
[~2022-01-03 10:29] MED LIST changes: +NS 1,000 ML IV ONE
[2022-01-03] MEDS ORDERED: propofoL 200 MG/20 ML VIAL As Ordered ONE (12:04)
[2022-01-03 12:40] VITALS: BP 130/81
== END 2022-01-03 12:42 | disposition home or self-care (01) ==
LOC: M OPP 10:29
PROVIDERS: ATTEND Surgery
DX: K92.1 Melena (principal); K64.1 Second degree hemorrhoids; Z85.038 Personal history of other malignant neoplasm of large intestine

== ENCOUNTER → 2022-05-24 | Outpatient (REF) | payer OTHER ==
[~2022-05-24] MED LIST changes: +FLUO-215 TOP; -FLUO5OI TOP; -NS 1,000 ML IV ONE
== END ==
LOC: M LAB REF 08:07
PROVIDERS: ATTEND Surgery
DX: I78.1 Nevus, non-neoplastic (principal)

== ENCOUNTER → 2024-04-23 | Outpatient (REF) | payer OTHER ==
[~2024-04-23] MED LIST changes: -FLUO-215 TOP; +FLUO5OI TOP
== END ==
LOC: M SFHCDERM 16:45
PROVIDERS: ATTEND Nurse Practitioner Family
DX: C43.39 Malignant melanoma of other parts of face (principal)